=== PATIENT | male | born 1960 | race Two or more races ===

== ENCOUNTER 2019-10-02 05:33 | Inpatient (IN) | payer OTHER ==
[~2019-10-02] VITALS: Ht 172.7 cm; Wt 126.0 kg
[2019-10-02] MEDS ORDERED: SODIUM CHLORIDE 0.9% 100 ML ONE ×2 (06:41→11:23)
[2019-10-02] MEDS ORDERED: IOVERSOL 350 MG/ML 100 ML VIAL ONE ×2 (06:41→11:23)
[2019-10-02] MEDS ORDERED: ALBUTEROL SULFATE HFA 90 MCG/PUFF 8 GM INHALER IH ONE (06:45)
[2019-10-02] MEDS ORDERED: ACETAMINOPHEN 325 MG TABLET PO PRN (07:00)
[2019-10-02] MEDS ORDERED: 0.9% SODIUM CHLORIDE 10 ML SYRINGE IVP PRN ×2 (07:00→08:00)
[2019-10-02] MEDS ORDERED: ONDANSETRON HCL 4 MG/2 ML VIAL IVP PRN ×2 (07:00→08:00)
[2019-10-02] MEDS ORDERED: DEXTROSE 50%-WATER 25 GM/50 ML SYRINGE IVP PRN (07:45)
[2019-10-02] MEDS ORDERED: ALBUTEROL SULFATE/IPRATROPIUM 100-20 MCG/SPRAY 4 GM INHALER IH PRN ×2 (07:45→13:15)
[2019-10-02] MEDS ORDERED: DOCUSATE SODIUM 100 MG CAPSULE PO PRN (08:00)
[2019-10-02] MEDS ORDERED: BISACODYL 10 MG RECTAL RECTAL SUPPOSITORY PR PRN (08:00)
[2019-10-02] MEDS ORDERED: MAGNESIUM HYDROXIDE SUSPENSION 30 ML UDCUP PO PRN (08:00)
[2019-10-02 08:41] LABS: GLUCOSE,POINT OF CARE 107 MG/DL (70-110)
[2019-10-02 08:55] LABS: APPEARANCE,URINE CLEAR (CLEAR); BILIRUBIN,URINE NEGATIVE (NEGATIVE); GLUCOSE, URINE (UA) NEGATIVE (NEGATIVE); KETONES,URINE >=80 mg/dL (NEGATIVE); LEUKOCYTE ESTERASE ,URINE NEGATIVE (NEGATIVE); NITRATE,URINE NEGATIVE (NEGATIVE); OCCULT BLOOD,URINE TRACE (NEGATIVE); PROTEIN,URINE SEE CONFIRM (NEGATIVE)
[2019-10-02] MEDS: ALBUTEROL SULFATE/IPRATROPIUM 100-20 MCG/SPRAY 4 GM INHALER IH SCH ×2 (09:31→18:35)
[2019-10-02] MEDS: PANTOPRAZOLE SODIUM 40 MG DR TABLET PO SCH (09:32)
[2019-10-02] MEDS: HEPARIN SODIUM,PORCINE 5,000 UNITS/ML VIAL SQ SCH ×2 (09:33→20:48)
[2019-10-02 09:51] LABS: BACTERIA,URINE None Seen /HPF (None Seen); RBC,URINE 0-2 /HPF (0-2); SULFOSALICYLIC ACID,URINE 3+ (Negative); WBC,URINE 0-2 /HPF (0-5)
[2019-10-02 09:52] LABS: HYALINE CASTS, URINE 0-2 /LPF (None Seen)
[2019-10-02 09:55] LABS: ABG A-A DIFF O2 583.2 mmHg (10-20.0); ABG BASE EXCESS 1.4 mmol/L (-2.0-3.0); ABG CARBOXYHEMOGLOBIN 0.2 % (0.0-1.5); ABG HCO3 25.7 mmol/L (22.0-26.0); ABG METHEMOGLOBIN 0.4 % (0.0-1.5); ABG OXYGEN CONTENT 20.2 mL/dL (15.0-23.0); ABG OXYGEN SATURATION 96.7 % (95.0-98.0); ABG OXYHEMOGLOBIN 96.1 % (94.0-100.0); ABG PCO2 40 mmHg (35-45); ABG PH 7.426 (7.35-7.450); ABG TOTAL HEMOGLOBIN 14.9 G/dL (12.0-18.0); PO2, ARTERIAL BG 89.2 mmHg (79.0-87.0); SOURCE, BLOOD GAS ARTERIAL
[2019-10-02 09:56] LABS: O2 DEVICE,BLOOD GAS NRB (ROOM AIR); SITE, BLOOD GAS LFT RADIAL
[2019-10-02 10:40] LABS: BASOPHILS % (AUTO) 0.1 % (0.0-2.0); EOSINOPHILS % (AUTO) 0 % (1.0-6.0); HEMATOCRIT 42.7 % (41-53); HEMOGLOBIN 14.2 g/dL (13.5-17.5); LYMPHOCYTES # (AUTO) 0.4 K/uL (1.0-4.8); LYMPHOCYTES % (AUTO) 3.1 % (22.0-44.0); MEAN CORPUSCULAR HEMOGLOBIN 29.2 pg (26.0-34.0); MEAN CORPUSCULAR HGB CONC 33.2 G/dL (31.0-37.0); MEAN CORPUSCULAR VOLUME 88 fL (80-100); MONOCYTES # (AUTO) 0.2 K/uL (0.1-1.0); MONOCYTES % (AUTO) 1.8 % (2.0-9.0); NEUTROPHILS # (AUTO) 12.9 K/uL (1.8-7.7); PLATELET COUNT (AUTO) 187 K/uL (150-450); RED BLOOD CELL COUNT(AUTO) 4.85 MIL/uL (4.50-5.90); RED CELL DISTRIBUTION WIDTH 13.8 % (11.5-14.5)
[2019-10-02 10:44] LABS: ANION GAP 11 mmol/L (8-16); CALCIUM, TOTAL 8.3 mg/dL (8.8-10.5); CARBON DIOXIDE 27 mmol/L (22-29); CHLORIDE 100 mmol/L (98-107); CREATININE 0.82 mg/dL (0.60-1.30); GLOMERULAR FILTR. RATE CALC > 60 mL/min (>60); GLUCOSE,RANDOM 106 mg/dL (70-110); POTASSIUM 4.4 mmol/L (3.5-5.1); SODIUM SERUM 138 mmol/L (136-145); UREA NITROGEN, BLOOD 21 mg/dL (7-18)
[2019-10-02 10:51] LABS: ALANINE AMINOTRANSFERASE 40 U/L (12-78); ALBUMIN 2.4 g/dL (3.4-5.0); ALKALINE PHOSPHATASE 69 U/L (46-116); ASPARTATE AMINOTRANSFERASE 46 U/L (15-37); BILIRUBIN,TOTAL 0.6 mg/dL (0.1-1.0); TOTAL PROTEIN, SERUM 6.7 g/dL (6.4-8.2)
[2019-10-02 11:37] LABS: C-REACTIVE PROTEIN QUANT 24.74 mg/dL (0.00-0.30); FERRITIN 1498 ng/mL (26-388)
[2019-10-02 11:58] LABS: ERYTHROCYTE SEDIMENTATION RATE 50 MM/HR (0-15)
[2019-10-02 13:23] VITALS: BP 134/75
[2019-10-02 16:59] VITALS: BP 122/66
[2019-10-02] MEDS ORDERED: AZITHROMYCIN 500 MG/NS 250 ML IV SCH (20:00)
[2019-10-02] MEDS ORDERED: SODIUM CHLORIDE 0.9% 250 ML IV ONE (20:28)
[2019-10-02] MEDS: HYDROXYCHLOROQUINE SULFATE 200 MG TABLET PO SCH (20:48)
[2019-10-02 21:03] VITALS: BP 122/63
[2019-10-02] MEDS: ACETAMINOPHEN 325 MG TABLET PO PRN (21:04)
[2019-10-03] MEDS: ZINC SULFATE 220 MG CAPSULE PO SCH ×3 (00:33→20:56)
[2019-10-03] MEDS: ALBUTEROL SULFATE/IPRATROPIUM 100-20 MCG/SPRAY 4 GM INHALER IH SCH ×4 (00:33→18:00)
[2019-10-03 04:00] VITALS: BP 92/53
[2019-10-03] MEDS: LEVOFLOXACIN 750 MG/D5% WATER 150 ML IV SCH (04:25)
[2019-10-03] MEDS: ACETAMINOPHEN 325 MG TABLET PO PRN ×2 (05:21→15:58)
[2019-10-03 06:57] LABS: EOSINOPHILS % (AUTO) 0 % (1.0-6.0); LYMPHOCYTES # (AUTO) 0.4 K/uL (1.0-4.8); LYMPHOCYTES % (AUTO) 4.6 % (22.0-44.0); MEAN CORPUSCULAR HEMOGLOBIN 29.5 pg (26.0-34.0); MEAN CORPUSCULAR HGB CONC 34.2 G/dL (31.0-37.0); MEAN CORPUSCULAR VOLUME 86 fL (80-100); MONOCYTES # (AUTO) 0.3 K/uL (0.1-1.0); MONOCYTES % (AUTO) 3.8 % (2.0-9.0); NEUTROPHILS # (AUTO) 7.3 K/uL (1.8-7.7); PLATELET COUNT (AUTO) 215 K/uL (150-450); RED BLOOD CELL COUNT(AUTO) 4.41 MIL/uL (4.50-5.90); RED CELL DISTRIBUTION WIDTH 13.5 % (11.5-14.5)
[2019-10-03 07:04] LABS: NEUTROPHILS % (AUTO) 91.6 % (40.0-70.0)
[2019-10-03] MEDS: HYDROXYCHLOROQUINE SULFATE 200 MG TABLET PO SCH ×2 (08:24→20:56)
[2019-10-03] MEDS: HEPARIN SODIUM,PORCINE 5,000 UNITS/ML VIAL SQ SCH ×2 (08:24→20:56)
[2019-10-03] MEDS: PANTOPRAZOLE SODIUM 40 MG DR TABLET PO SCH (08:24)
[2019-10-03 08:35] VITALS: BP 111/66
[2019-10-03 08:58] LABS: ALANINE AMINOTRANSFERASE 60 U/L (12-78); ALBUMIN 2.1 g/dL (3.4-5.0); ALKALINE PHOSPHATASE 62 U/L (46-116); ANION GAP 8 mmol/L (8-16); ASPARTATE AMINOTRANSFERASE 82 U/L (15-37); BILIRUBIN,TOTAL 0.4 mg/dL (0.1-1.0); C-REACTIVE PROTEIN QUANT 19.47 mg/dL (0.00-0.30); CALCIUM, TOTAL 7.9 mg/dL (8.8-10.5); CARBON DIOXIDE 26 mmol/L (22-29); CHLORIDE 100 mmol/L (98-107); CREATININE 0.96 mg/dL (0.60-1.30); FERRITIN 1632 ng/mL (26-388); GLOMERULAR FILTR. RATE CALC > 60 mL/min (>60); GLUCOSE,RANDOM 119 mg/dL (70-110); LACTATE DEHYDROGENASE 402 U/L (85-227); SODIUM SERUM 134 mmol/L (136-145); TOTAL PROTEIN, SERUM 6.3 g/dL (6.4-8.2); UREA NITROGEN, BLOOD 26 mg/dL (7-18)
[2019-10-03 09:28] LABS: GLUCOMETER DEV NAME(LOC) 5N.1; GLUCOSE,POINT OF CARE 120 MG/DL (70-110)
[2019-10-03 09:28] LABS: GLUCOMETER DEV NAME(LOC) 5N.1; GLUCOSE,POINT OF CARE 137 MG/DL (70-110)
[2019-10-03 15:47] VITALS: BP 109/61
[2019-10-03 20:26] VITALS: BP 115/66
[2019-10-03] MEDS ORDERED: SODIUM CHLORIDE 0.9% 500 ML IV ONE (23:44)
[2019-10-04] VITALS (9 sets, daily range): BP systolic 107–139; BP diastolic 60–82
[2019-10-04] MEDS: ACETAMINOPHEN 325 MG TABLET PO PRN ×4 (00:12→22:19)
[2019-10-04] MEDS: ALBUTEROL SULFATE/IPRATROPIUM 100-20 MCG/SPRAY 4 GM INHALER IH SCH ×4 (01:56→20:06)
[2019-10-04 02:40] LABS: GLUCOMETER DEV NAME(LOC) 5S.2A; GLUCOSE,POINT OF CARE 95 MG/DL (70-110)
[2019-10-04 02:40] LABS: GLUCOMETER DEV NAME(LOC) 5S.2A; GLUCOSE,POINT OF CARE 98 MG/DL (70-110)
[2019-10-04 02:40] LABS: GLUCOMETER DEV NAME(LOC) 5S.2A; GLUCOSE,POINT OF CARE 99 MG/DL (70-110)
[2019-10-04 02:40] LABS: GLUCOMETER DEV NAME(LOC) 5S.2A; GLUCOSE,POINT OF CARE 100 MG/DL (70-110)
[2019-10-04 02:40] LABS: GLUCOMETER DEV NAME(LOC) 5S.2A; GLUCOSE,POINT OF CARE 101 MG/DL (70-110)
[2019-10-04] MEDS: LEVOFLOXACIN 750 MG/D5% WATER 150 ML IV SCH (03:44)
[2019-10-04 06:56] LABS: EOSINOPHILS % (AUTO) 0.3 % (1.0-6.0); HEMATOCRIT 39.9 % (41-53); HEMOGLOBIN 13.2 g/dL (13.5-17.5); LYMPHOCYTES # (AUTO) 0.4 K/uL (1.0-4.8); MEAN CORPUSCULAR HEMOGLOBIN 28.7 pg (26.0-34.0); MEAN CORPUSCULAR VOLUME 87 fL (80-100); MONOCYTES # (AUTO) 0.3 K/uL (0.1-1.0); MONOCYTES % (AUTO) 4.2 % (2.0-9.0); NEUTROPHILS # (AUTO) 6.7 K/uL (1.8-7.7); PLATELET COUNT (AUTO) 271 K/uL (150-450); RED BLOOD CELL COUNT(AUTO) 4.59 MIL/uL (4.50-5.90); RED CELL DISTRIBUTION WIDTH 13.5 % (11.5-14.5)
[2019-10-04 07:17] LABS: NEUTROPHILS % (AUTO) 90.5 % (40.0-70.0)
[2019-10-04 07:49] LABS: GLUCOMETER DEV NAME(LOC) 5S.2A; GLUCOSE,POINT OF CARE 100 MG/DL (70-110)
[2019-10-04 08:20] LABS: ANION GAP 11 mmol/L (8-16); C-REACTIVE PROTEIN QUANT 13.15 mg/dL (0.00-0.30); CALCIUM, TOTAL 7.9 mg/dL (8.8-10.5); CARBON DIOXIDE 27 mmol/L (22-29); CHLORIDE 100 mmol/L (98-107); FERRITIN 1306 ng/mL (26-388); GLOMERULAR FILTR. RATE CALC > 60 mL/min (>60); GLUCOSE,RANDOM 93 mg/dL (70-110); LACTATE DEHYDROGENASE 393 U/L (85-227); POTASSIUM 4.5 mmol/L (3.5-5.1); SODIUM SERUM 138 mmol/L (136-145); UREA NITROGEN, BLOOD 18 mg/dL (7-18)
[2019-10-04] MEDS: HEPARIN SODIUM,PORCINE 5,000 UNITS/ML VIAL SQ SCH ×2 (09:41→22:19)
[2019-10-04] MEDS: HYDROXYCHLOROQUINE SULFATE 200 MG TABLET PO SCH ×2 (09:42→22:19)
[2019-10-04] MEDS: PANTOPRAZOLE SODIUM 40 MG DR TABLET PO SCH (09:42)
[2019-10-04] MEDS: ZINC SULFATE 220 MG CAPSULE PO SCH ×2 (09:42→22:19)
[2019-10-04 20:41] LABS: GLUCOMETER DEV NAME(LOC) 5S.1; GLUCOSE,POINT OF CARE 91 MG/DL (70-110)
[2019-10-04 20:54] LABS: GLUCOMETER DEV NAME(LOC) 5N.1; GLUCOSE,POINT OF CARE 106 MG/DL (70-110)
[2019-10-05 00:47] VITALS: BP 116/72
[2019-10-05] MEDS: ALBUTEROL SULFATE/IPRATROPIUM 100-20 MCG/SPRAY 4 GM INHALER IH SCH ×5 (01:13→23:55)
[2019-10-05] MEDS: LEVOFLOXACIN 750 MG/D5% WATER 150 ML IV SCH (01:15)
[2019-10-05 04:34] VITALS: BP 109/51
[2019-10-05 07:11] LABS: BASOPHILS % (AUTO) 0.1 % (0.0-2.0); EOSINOPHILS % (AUTO) 0.5 % (1.0-6.0); HEMATOCRIT 37.2 % (41-53); HEMOGLOBIN 12.5 g/dL (13.5-17.5); LYMPHOCYTES # (AUTO) 0.2 K/uL (1.0-4.8); LYMPHOCYTES % (AUTO) 3.8 % (22.0-44.0); MEAN CORPUSCULAR HEMOGLOBIN 29.1 pg (26.0-34.0); MEAN CORPUSCULAR HGB CONC 33.6 G/dL (31.0-37.0); MEAN CORPUSCULAR VOLUME 87 fL (80-100); MONOCYTES # (AUTO) 0.3 K/uL (0.1-1.0); MONOCYTES % (AUTO) 4.2 % (2.0-9.0); NEUTROPHILS # (AUTO) 5.9 K/uL (1.8-7.7); PLATELET COUNT (AUTO) 296 K/uL (150-450); RED BLOOD CELL COUNT(AUTO) 4.28 MIL/uL (4.50-5.90); RED CELL DISTRIBUTION WIDTH 13.3 % (11.5-14.5)
[2019-10-05 07:29] LABS: NEUTROPHILS % (AUTO) 91.4 % (40.0-70.0)
[2019-10-05 07:44] VITALS: BP 106/60
[2019-10-05] MEDS: ZINC SULFATE 220 MG CAPSULE PO SCH ×2 (08:15→20:33)
[2019-10-05] MEDS: HYDROXYCHLOROQUINE SULFATE 200 MG TABLET PO SCH (08:15)
[2019-10-05] MEDS: HEPARIN SODIUM,PORCINE 5,000 UNITS/ML VIAL SQ SCH ×2 (08:15→20:33)
[2019-10-05] MEDS: PANTOPRAZOLE SODIUM 40 MG DR TABLET PO SCH (08:15)
[2019-10-05] MEDS: ACETAMINOPHEN 325 MG TABLET PO PRN ×2 (08:19→20:33)
[2019-10-05 08:21] LABS: ALANINE AMINOTRANSFERASE 76 U/L (12-78); ALKALINE PHOSPHATASE 82 U/L (46-116); ANION GAP 8 mmol/L (8-16); ASPARTATE AMINOTRANSFERASE 70 U/L (15-37); BILIRUBIN,TOTAL 0.4 mg/dL (0.1-1.0); C-REACTIVE PROTEIN QUANT 18.48 mg/dL (0.00-0.30); CARBON DIOXIDE 26 mmol/L (22-29); CHLORIDE 98 mmol/L (98-107); CREATININE 0.92 mg/dL (0.60-1.30); FERRITIN 1351 ng/mL (26-388); GLOMERULAR FILTR. RATE CALC > 60 mL/min (>60); GLUCOSE,RANDOM 93 mg/dL (70-110); LACTATE DEHYDROGENASE 498 U/L (85-227); POTASSIUM 4.1 mmol/L (3.5-5.1); SODIUM SERUM 132 mmol/L (136-145); TOTAL PROTEIN, SERUM 6.5 g/dL (6.4-8.2); UREA NITROGEN, BLOOD 13 mg/dL (7-18)
[2019-10-05 11:50] VITALS: BP 103/58
[2019-10-05 14:14] LABS: LEGIONELLA PNEUMO AG URINE Negative (Negative); ORGANISM ID Not indicated.; S PNEUMO SOURCE Urine; STREP PNEUMONIAE AG URINE Negative (Negative); STREP.PNEUMO BODY FLUID CULT. Not indicated.
[2019-10-05 17:16] VITALS: BP 131/72
[2019-10-05 20:48] VITALS: BP 123/66
[2019-10-06] MEDS: LEVOFLOXACIN 750 MG/D5% WATER 150 ML IV SCH ×2 (01:25→23:48)
[2019-10-06] MEDS: ACETAMINOPHEN 325 MG TABLET PO PRN ×3 (01:30→20:08)
[2019-10-06 01:31] VITALS: BP 118/68
[2019-10-06 04:13] VITALS: BP 121/74
[2019-10-06 06:01] LABS: BASOPHILS % (AUTO) 0.5 % (0.0-2.0); HEMATOCRIT 37.1 % (41-53); HEMOGLOBIN 12.9 g/dL (13.5-17.5); LYMPHOCYTES # (AUTO) 0.3 K/uL (1.0-4.8); LYMPHOCYTES % (AUTO) 4.4 % (22.0-44.0); MEAN CORPUSCULAR HGB CONC 34.8 G/dL (31.0-37.0); MEAN CORPUSCULAR VOLUME 86 fL (80-100); MONOCYTES # (AUTO) 0.3 K/uL (0.1-1.0); MONOCYTES % (AUTO) 4.6 % (2.0-9.0); NEUTROPHILS # (AUTO) 6.5 K/uL (1.8-7.7); PLATELET COUNT (AUTO) 310 K/uL (150-450); RED BLOOD CELL COUNT(AUTO) 4.31 MIL/uL (4.50-5.90); RED CELL DISTRIBUTION WIDTH 13.4 % (11.5-14.5)
[2019-10-06 06:32] LABS: GLUCOMETER DEV NAME(LOC) 5S.2A; GLUCOSE,POINT OF CARE 87 MG/DL (70-110)
[2019-10-06 06:32] LABS: GLUCOMETER DEV NAME(LOC) 5N.1; GLUCOSE,POINT OF CARE 143 MG/DL (70-110)
[2019-10-06 06:32] LABS: GLUCOMETER DEV NAME(LOC) 5N.1; GLUCOSE,POINT OF CARE 106 MG/DL (70-110)
[2019-10-06 06:32] LABS: GLUCOMETER DEV NAME(LOC) 5N.1; GLUCOSE,POINT OF CARE 98 MG/DL (70-110)
[2019-10-06 06:57] LABS: ALANINE AMINOTRANSFERASE 95 U/L (12-78); ALBUMIN 1.9 g/dL (3.4-5.0); ALKALINE PHOSPHATASE 89 U/L (46-116); ANION GAP 9 mmol/L (8-16); ASPARTATE AMINOTRANSFERASE 84 U/L (15-37); BILIRUBIN,TOTAL 0.5 mg/dL (0.1-1.0); C-REACTIVE PROTEIN QUANT 21.34 mg/dL (0.00-0.30); CALCIUM, TOTAL 8.1 mg/dL (8.8-10.5); CARBON DIOXIDE 27 mmol/L (22-29); CHLORIDE 100 mmol/L (98-107); CREATININE 0.99 mg/dL (0.60-1.30); FERRITIN 1772 ng/mL (26-388); GLOMERULAR FILTR. RATE CALC > 60 mL/min (>60); GLUCOSE,RANDOM 103 mg/dL (70-110); LACTATE DEHYDROGENASE 313 U/L (85-227); POTASSIUM 4.2 mmol/L (3.5-5.1); SODIUM SERUM 136 mmol/L (136-145); TOTAL PROTEIN, SERUM 6.7 g/dL (6.4-8.2); UREA NITROGEN, BLOOD 12 mg/dL (7-18)
[2019-10-06 07:49] VITALS: BP 111/72
[2019-10-06 07:53] LABS: NEUTROPHILS % (AUTO) 89.5 % (40.0-70.0)
[2019-10-06] MEDS: HEPARIN SODIUM,PORCINE 5,000 UNITS/ML VIAL SQ SCH ×2 (08:25→20:09)
[2019-10-06] MEDS: ZINC SULFATE 220 MG CAPSULE PO SCH ×2 (08:25→20:09)
[2019-10-06] MEDS: PANTOPRAZOLE SODIUM 40 MG DR TABLET PO SCH (08:25)
[2019-10-06] MEDS: ALBUTEROL SULFATE/IPRATROPIUM 100-20 MCG/SPRAY 4 GM INHALER IH SCH ×4 (08:26→23:47)
[2019-10-06 16:33] VITALS: BP 107/56
[2019-10-06 19:50] VITALS: BP 119/72
[2019-10-06 23:39] VITALS: BP 117/62
[2019-10-07] MEDS: ALBUTEROL SULFATE/IPRATROPIUM 100-20 MCG/SPRAY 4 GM INHALER IH SCH ×3 (05:12→17:59)
[2019-10-07 05:19] VITALS: BP 109/51
[2019-10-07 07:22] VITALS: BP 117/69
[2019-10-07 07:44] LABS: BASOPHILS % (AUTO) 0.6 % (0.0-2.0); EOSINOPHILS % (AUTO) 1.4 % (1.0-6.0); HEMATOCRIT 37.5 % (41-53); HEMOGLOBIN 12.4 g/dL (13.5-17.5); LYMPHOCYTES # (AUTO) 0.5 K/uL (1.0-4.8); LYMPHOCYTES % (AUTO) 7.1 % (22.0-44.0); MEAN CORPUSCULAR HEMOGLOBIN 28.8 pg (26.0-34.0); MEAN CORPUSCULAR VOLUME 87 fL (80-100); MONOCYTES # (AUTO) 0.3 K/uL (0.1-1.0); MONOCYTES % (AUTO) 4.5 % (2.0-9.0); NEUTROPHILS # (AUTO) 5.9 K/uL (1.8-7.7); PLATELET COUNT (AUTO) 364 K/uL (150-450); RED CELL DISTRIBUTION WIDTH 13.5 % (11.5-14.5)
[2019-10-07 07:50] LABS: NEUTROPHILS % (AUTO) 86.4 % (40.0-70.0)
[2019-10-07] MEDS: HEPARIN SODIUM,PORCINE 5,000 UNITS/ML VIAL SQ SCH ×2 (08:28→20:49)
[2019-10-07] MEDS: PANTOPRAZOLE SODIUM 40 MG DR TABLET PO SCH (08:29)
[2019-10-07] MEDS: ZINC SULFATE 220 MG CAPSULE PO SCH ×2 (08:29→20:49)
[2019-10-07 08:51] LABS: ALANINE AMINOTRANSFERASE 95 U/L (12-78); ALBUMIN 1.8 g/dL (3.4-5.0); ALKALINE PHOSPHATASE 104 U/L (46-116); ANION GAP 10 mmol/L (8-16); ASPARTATE AMINOTRANSFERASE 79 U/L (15-37); BILIRUBIN,TOTAL 0.4 mg/dL (0.1-1.0); C-REACTIVE PROTEIN QUANT 19.79 mg/dL (0.00-0.30); CARBON DIOXIDE 26 mmol/L (22-29); CHLORIDE 98 mmol/L (98-107); CREATININE 0.96 mg/dL (0.60-1.30); FERRITIN 1660 ng/mL (26-388); GLOMERULAR FILTR. RATE CALC > 60 mL/min (>60); GLUCOSE,RANDOM 91 mg/dL (70-110); LACTATE DEHYDROGENASE 355 U/L (85-227); POTASSIUM 4.1 mmol/L (3.5-5.1); SODIUM SERUM 134 mmol/L (136-145); TOTAL PROTEIN, SERUM 6.7 g/dL (6.4-8.2); UREA NITROGEN, BLOOD 12 mg/dL (7-18)
[2019-10-07 11:03] VITALS: BP 119/73
[2019-10-07] MEDS: ACETAMINOPHEN 325 MG TABLET PO PRN (12:09)
[2019-10-07 15:23] VITALS: BP 117/75
[2019-10-07 16:31] LABS: GLUCOMETER DEV NAME(LOC) 5S.2A; GLUCOSE,POINT OF CARE 102 MG/DL (70-110)
[2019-10-07 17:29] LABS: GLUCOMETER DEV NAME(LOC) 5N.3; GLUCOSE,POINT OF CARE 94 MG/DL (70-110)
[2019-10-07 20:10] VITALS: BP 106/41
[2019-10-08] MEDS: ALBUTEROL SULFATE/IPRATROPIUM 100-20 MCG/SPRAY 4 GM INHALER IH SCH ×4 (01:16→18:00)
[2019-10-08] MEDS: LEVOFLOXACIN 750 MG/D5% WATER 150 ML IV SCH (02:01)
[2019-10-08 05:43] VITALS: BP 113/70
[2019-10-08 06:42] LABS: GLUCOMETER DEV NAME(LOC) 5N.3; GLUCOSE,POINT OF CARE 100 MG/DL (70-110)
[2019-10-08 06:42] LABS: GLUCOMETER DEV NAME(LOC) 5N.3; GLUCOSE,POINT OF CARE 134 MG/DL (70-110)
[2019-10-08 07:40] VITALS: BP 108/68
[2019-10-08 07:48] LABS: BASOPHILS % (AUTO) 0.7 % (0.0-2.0); HEMATOCRIT 35.6 % (41-53); LYMPHOCYTES # (AUTO) 0.4 K/uL (1.0-4.8); LYMPHOCYTES % (AUTO) 6.6 % (22.0-44.0); MEAN CORPUSCULAR HEMOGLOBIN 29.3 pg (26.0-34.0); MEAN CORPUSCULAR HGB CONC 33.6 G/dL (31.0-37.0); MEAN CORPUSCULAR VOLUME 87 fL (80-100); MONOCYTES # (AUTO) 0.4 K/uL (0.1-1.0); MONOCYTES % (AUTO) 6.5 % (2.0-9.0); NEUTROPHILS # (AUTO) 5.5 K/uL (1.8-7.7); PLATELET COUNT (AUTO) 383 K/uL (150-450); RED BLOOD CELL COUNT(AUTO) 4.08 MIL/uL (4.50-5.90); RED CELL DISTRIBUTION WIDTH 13.7 % (11.5-14.5)
[2019-10-08 08:16] LABS: NEUTROPHILS % (AUTO) 85.2 % (40.0-70.0)
[2019-10-08] MEDS: ZINC SULFATE 220 MG CAPSULE PO SCH (08:37)
[2019-10-08] MEDS: HEPARIN SODIUM,PORCINE 5,000 UNITS/ML VIAL SQ SCH (08:38)
[2019-10-08] MEDS: PANTOPRAZOLE SODIUM 40 MG DR TABLET PO SCH (08:38)
[2019-10-08 09:09] LABS: ALANINE AMINOTRANSFERASE 112 U/L (12-78); ALBUMIN 1.8 g/dL (3.4-5.0); ALKALINE PHOSPHATASE 94 U/L (46-116); ANION GAP 10 mmol/L (8-16); ASPARTATE AMINOTRANSFERASE 86 U/L (15-37); BILIRUBIN,TOTAL 0.5 mg/dL (0.1-1.0); C-REACTIVE PROTEIN QUANT 17.33 mg/dL (0.00-0.30); CALCIUM, TOTAL 8.2 mg/dL (8.8-10.5); CARBON DIOXIDE 26 mmol/L (22-29); CHLORIDE 99 mmol/L (98-107); CREATININE 0.92 mg/dL (0.60-1.30); FERRITIN 1517 ng/mL (26-388); GLOMERULAR FILTR. RATE CALC > 60 mL/min (>60); GLUCOSE,RANDOM 89 mg/dL (70-110); POTASSIUM 4.3 mmol/L (3.5-5.1); SODIUM SERUM 135 mmol/L (136-145); TOTAL PROTEIN, SERUM 6.6 g/dL (6.4-8.2); UREA NITROGEN, BLOOD 13 mg/dL (7-18)
[2019-10-08 11:35] VITALS: BP 112/68
[2019-10-08 15:16] VITALS: BP 126/87
[2019-10-08 19:28] VITALS: BP 133/74
[2019-10-09 00:08] LABS: GLUCOMETER DEV NAME(LOC) 5S.2A; GLUCOSE,POINT OF CARE 94 MG/DL (70-110)
[2019-10-09] MEDS: ZINC SULFATE 220 MG CAPSULE PO SCH ×3 (00:47→20:53)
[2019-10-09] MEDS: ALBUTEROL SULFATE/IPRATROPIUM 100-20 MCG/SPRAY 4 GM INHALER IH SCH ×4 (00:48→18:08)
[2019-10-09] MEDS: HEPARIN SODIUM,PORCINE 5,000 UNITS/ML VIAL SQ SCH ×3 (00:49→20:53)
[2019-10-09 01:21] LABS: GLUCOMETER DEV NAME(LOC) 5N.3; GLUCOSE,POINT OF CARE 82 MG/DL (70-110)
[2019-10-09] MEDS: LEVOFLOXACIN 750 MG/D5% WATER 150 ML IV SCH (01:26)
[2019-10-09 05:16] VITALS: BP 114/65
[2019-10-09 06:33] LABS: GLUCOMETER DEV NAME(LOC) 5S.2A; GLUCOSE,POINT OF CARE 89 MG/DL (70-110)
[2019-10-09 07:22] VITALS: BP 116/69
[2019-10-09 07:58] LABS: GLUCOMETER DEV NAME(LOC) 5N.3; GLUCOSE,POINT OF CARE 109 MG/DL (70-110)
[2019-10-09 08:02] LABS: BASOPHILS % (AUTO) 0.3 % (0.0-2.0); EOSINOPHILS % (AUTO) 0.5 % (1.0-6.0); HEMATOCRIT 37.9 % (41-53); HEMOGLOBIN 12.5 g/dL (13.5-17.5); LYMPHOCYTES # (AUTO) 0.5 K/uL (1.0-4.8); LYMPHOCYTES % (AUTO) 6.1 % (22.0-44.0); MEAN CORPUSCULAR HEMOGLOBIN 28.6 pg (26.0-34.0); MEAN CORPUSCULAR HGB CONC 32.9 G/dL (31.0-37.0); MEAN CORPUSCULAR VOLUME 87 fL (80-100); MONOCYTES # (AUTO) 0.6 K/uL (0.1-1.0); MONOCYTES % (AUTO) 7.4 % (2.0-9.0); NEUTROPHILS # (AUTO) 7.4 K/uL (1.8-7.7); PLATELET COUNT (AUTO) 433 K/uL (150-450); RED BLOOD CELL COUNT(AUTO) 4.35 MIL/uL (4.50-5.90); RED CELL DISTRIBUTION WIDTH 13.6 % (11.5-14.5)
[2019-10-09 08:35] LABS: NEUTROPHILS % (AUTO) 85.7 % (40.0-70.0)
[2019-10-09 09:11] LABS: ALANINE AMINOTRANSFERASE 172 U/L (12-78); ALBUMIN 1.9 g/dL (3.4-5.0); ALKALINE PHOSPHATASE 126 U/L (46-116); ANION GAP 9 mmol/L (8-16); ASPARTATE AMINOTRANSFERASE 165 U/L (15-37); BILIRUBIN,TOTAL 0.6 mg/dL (0.1-1.0); C-REACTIVE PROTEIN QUANT 18.01 mg/dL (0.00-0.30); CARBON DIOXIDE 27 mmol/L (22-29); CHLORIDE 99 mmol/L (98-107); FERRITIN 1709 ng/mL (26-388); GLOMERULAR FILTR. RATE CALC > 60 mL/min (>60); GLUCOSE,RANDOM 94 mg/dL (70-110); POTASSIUM 5.1 mmol/L (3.5-5.1); SODIUM SERUM 135 mmol/L (136-145); TOTAL PROTEIN, SERUM 6.3 g/dL (6.4-8.2); UREA NITROGEN, BLOOD 14 mg/dL (7-18)
[2019-10-09] MEDS: PANTOPRAZOLE SODIUM 40 MG DR TABLET PO SCH (10:33)
[2019-10-09] MEDS: ACETAMINOPHEN 325 MG TABLET PO PRN (10:33)
[2019-10-09 10:55] VITALS: BP 120/70
[2019-10-09 15:42] VITALS: BP 111/65
[2019-10-09 17:29] LABS: GLUCOMETER DEV NAME(LOC) 5S.2A; GLUCOSE,POINT OF CARE 126 MG/DL (70-110)
[2019-10-09 20:09] VITALS: BP 96/61
[2019-10-09 22:14] LABS: GLUCOMETER DEV NAME(LOC) 5S.2A; GLUCOSE,POINT OF CARE 134 MG/DL (70-110)
[2019-10-10 00:35] VITALS: BP 113/64
[2019-10-10 04:09] VITALS: BP 110/66
[2019-10-10 06:17] LABS: GLUCOMETER DEV NAME(LOC) 5N.3; GLUCOSE,POINT OF CARE 101 MG/DL (70-110)
[2019-10-10 06:42] LABS: ALANINE AMINOTRANSFERASE 147 U/L (12-78); ALBUMIN 1.7 g/dL (3.4-5.0); ALKALINE PHOSPHATASE 116 U/L (46-116); ANION GAP 7 mmol/L (8-16); ASPARTATE AMINOTRANSFERASE 88 U/L (15-37); BILIRUBIN,TOTAL 0.6 mg/dL (0.1-1.0); CALCIUM, TOTAL 8.4 mg/dL (8.8-10.5); CARBON DIOXIDE 28 mmol/L (22-29); CHLORIDE 101 mmol/L (98-107); GLOMERULAR FILTR. RATE CALC > 60 mL/min (>60); GLUCOSE,RANDOM 93 mg/dL (70-110); POTASSIUM 4.4 mmol/L (3.5-5.1); SODIUM SERUM 136 mmol/L (136-145); TOTAL PROTEIN, SERUM 6.9 g/dL (6.4-8.2); UREA NITROGEN, BLOOD 13 mg/dL (7-18)
[2019-10-10 07:37] VITALS: BP 115/68
[2019-10-10] MEDS: ZINC SULFATE 220 MG CAPSULE PO SCH ×2 (08:48→21:11)
[2019-10-10] MEDS: ALBUTEROL SULFATE/IPRATROPIUM 100-20 MCG/SPRAY 4 GM INHALER IH SCH ×4 (08:49→17:35)
[2019-10-10] MEDS: PANTOPRAZOLE SODIUM 40 MG DR TABLET PO SCH (08:49)
[2019-10-10] MEDS: HEPARIN SODIUM,PORCINE 5,000 UNITS/ML VIAL SQ SCH (08:49)
[2019-10-10 09:47] LABS: C-REACTIVE PROTEIN QUANT 16.45 mg/dL (0.00-0.30); FERRITIN 1666 ng/mL (26-388)
[2019-10-10 11:00] VITALS: BP 101/61
[2019-10-10 15:50] VITALS: BP 115/64
[2019-10-10] MEDS: ACETAMINOPHEN 325 MG TABLET PO PRN (17:43)
[2019-10-10 20:01] VITALS: BP 108/65
[2019-10-10 20:40] LABS: GLUCOMETER DEV NAME(LOC) 5N.3; GLUCOSE,POINT OF CARE 114 MG/DL (70-110)
[2019-10-10] MEDS: ENOXAPARIN SODIUM 60 MG/0.6 ML PF SYRINGE SQ SCH (21:11)
[2019-10-11] VITALS: BP 98/60
[2019-10-11] MEDS: ALBUTEROL SULFATE/IPRATROPIUM 100-20 MCG/SPRAY 4 GM INHALER IH SCH ×4 (01:30→18:00)
[2019-10-11 04:55] VITALS: BP 122/74
[2019-10-11] MEDS ORDERED: 0.9% SODIUM CHLORIDE 5 ML NEB SOLUTION NEB ONE ×2 (08:41→17:12)
[2019-10-11 09:06] VITALS: BP 118/64
[2019-10-11] MEDS: ACETAMINOPHEN 325 MG TABLET PO PRN ×2 (09:24→15:25)
[2019-10-11] MEDS: ZINC SULFATE 220 MG CAPSULE PO SCH ×2 (09:24→20:13)
[2019-10-11] MEDS: ENOXAPARIN SODIUM 60 MG/0.6 ML PF SYRINGE SQ SCH ×2 (09:24→20:13)
[2019-10-11] MEDS: PANTOPRAZOLE SODIUM 40 MG DR TABLET PO SCH (09:24)
[2019-10-11 10:18] LABS: GLUCOMETER DEV NAME(LOC) 5S.2A; GLUCOSE,POINT OF CARE 123 MG/DL (70-110)
[2019-10-11 12:07] VITALS: BP 110/61
[2019-10-11 14:12] LABS: GLUCOMETER DEV NAME(LOC) 5S.2A; GLUCOSE,POINT OF CARE 124 MG/DL (70-110)
[2019-10-11 15:15] VITALS: BP 113/67
[2019-10-11] MEDS ORDERED: ACETAMINOPHEN 325 MG TABLET PO PRN (16:00)
[2019-10-11] MEDS ORDERED: MORPHINE SULFATE 2 MG/ML SYRINGE IVP PRN (16:00)
[2019-10-11] MEDS ORDERED: MAGNESIUM HYDROXIDE SUSPENSION 30 ML UDCUP PO PRN (16:00)
[2019-10-11] MEDS ORDERED: OxyCODONE HCL/ACETAMINOPHEN 5-325 MG TABLET PO PRN (16:00)
[2019-10-11] MEDS ORDERED: ZOLPIDEM TARTRATE 5 MG TABLET PO PRN (16:00)
[2019-10-11] MEDS ORDERED: ONDANSETRON HCL 4 MG/2 ML VIAL IVP PRN (16:00)
[2019-10-11] MEDS ORDERED: *CLINICAL-AZTREONAM DOSING CLINICAL ONE (17:15)
[2019-10-11 18:00] LABS: GLUCOMETER DEV NAME(LOC) 5S.2A; GLUCOSE,POINT OF CARE 99 MG/DL (70-110)
[2019-10-11 19:41] LABS: BASOPHILS % (AUTO) 0.7 % (0.0-2.0); EOSINOPHILS % (AUTO) 0.4 % (1.0-6.0); HEMATOCRIT 36.6 % (41-53); HEMOGLOBIN 12.1 g/dL (13.5-17.5); LYMPHOCYTES # (AUTO) 0.8 K/uL (1.0-4.8); LYMPHOCYTES % (AUTO) 7.3 % (22.0-44.0); MEAN CORPUSCULAR HEMOGLOBIN 28.9 pg (26.0-34.0); MEAN CORPUSCULAR VOLUME 88 fL (80-100); MONOCYTES # (AUTO) 0.9 K/uL (0.1-1.0); MONOCYTES % (AUTO) 8.1 % (2.0-9.0); NEUTROPHILS # (AUTO) 9.3 K/uL (1.8-7.7); NEUTROPHILS % (AUTO) 83.5 % (40.0-70.0); PLATELET COUNT (AUTO) 430 K/uL (150-450); RED BLOOD CELL COUNT(AUTO) 4.17 MIL/uL (4.50-5.90); RED CELL DISTRIBUTION WIDTH 13.4 % (11.5-14.5)
[2019-10-11 20:03] VITALS: BP 114/58
[2019-10-11] MEDS: VANCOMYCIN HCL 1.5 GM in DEXTROSE 5%-WATER 250 ML IV SCH (20:13)
[2019-10-11 20:15] LABS: ANION GAP 6 mmol/L (8-16); CALCIUM, TOTAL 8.6 mg/dL (8.8-10.5); CARBON DIOXIDE 30 mmol/L (22-29); CHLORIDE 98 mmol/L (98-107); CREATININE 0.81 mg/dL (0.60-1.30); GLOMERULAR FILTR. RATE CALC > 60 mL/min (>60); GLUCOSE,RANDOM 94 mg/dL (70-110); POTASSIUM 4.7 mmol/L (3.5-5.1); SODIUM SERUM 134 mmol/L (136-145); UREA NITROGEN, BLOOD 15 mg/dL (7-18)
[2019-10-11 20:20] LABS: ALANINE AMINOTRANSFERASE 151 U/L (12-78); ALBUMIN 1.8 g/dL (3.4-5.0); ALKALINE PHOSPHATASE 137 U/L (46-116); ASPARTATE AMINOTRANSFERASE 87 U/L (15-37); BILIRUBIN,TOTAL 0.7 mg/dL (0.1-1.0); TOTAL PROTEIN, SERUM 7.3 g/dL (6.4-8.2)
[2019-10-11] MEDS: AZTREONAM 1 GM in DEXTROSE 5%-WATER 50 ML IV SCH (21:52)
[2019-10-11] MEDS: BISACODYL 10 MG RECTAL RECTAL SUPPOSITORY PR PRN (22:47)
[2019-10-11 23:46] LABS: ABG A-A DIFF O2 618.2 mmHg (10-20.0); ABG BASE EXCESS -0.1 mmol/L (-2.0-3.0); ABG CARBOXYHEMOGLOBIN 0.6 % (0.0-1.5); ABG HCO3 24.6 mmol/L (22.0-26.0); ABG METHEMOGLOBIN 0.3 % (0.0-1.5); ABG OXYGEN SATURATION 90.3 % (95.0-98.0); ABG OXYHEMOGLOBIN 89.5 % (94.0-100.0); ABG PCO2 35 mmHg (35-45); ABG PH 7.448 (7.35-7.450); ABG TOTAL HEMOGLOBIN 12.7 G/dL (12.0-18.0); PO2, ARTERIAL BG 59.2 mmHg (79.0-87.0); SITE, BLOOD GAS RT BRACHIAL; SOURCE, BLOOD GAS ARTERIAL; TEMPERATURE, FAHRENHEIT, BG 98.8 FAHREN (96.0-98.6)
[2019-10-11 23:47] LABS: O2 DEVICE,BLOOD GAS NON REBREATHER (ROOM AIR)
[2019-10-12 00:10] VITALS: BP 119/63
[2019-10-12] MEDS: ALBUTEROL SULFATE/IPRATROPIUM 100-20 MCG/SPRAY 4 GM INHALER IH SCH ×4 (00:29→18:28)
[2019-10-12 05:44] VITALS: BP 145/77
[2019-10-12] MEDS: AZTREONAM 1 GM in DEXTROSE 5%-WATER 50 ML IV SCH ×3 (06:22→22:29)
[2019-10-12 07:44] VITALS: BP 113/74
[2019-10-12 07:48] LABS: BASOPHILS % (AUTO) 0.3 % (0.0-2.0); EOSINOPHILS % (AUTO) 0.2 % (1.0-6.0); HEMATOCRIT 35.5 % (41-53); LYMPHOCYTES # (AUTO) 0.6 K/uL (1.0-4.8); LYMPHOCYTES % (AUTO) 5.9 % (22.0-44.0); MEAN CORPUSCULAR HEMOGLOBIN 29.5 pg (26.0-34.0); MEAN CORPUSCULAR HGB CONC 33.8 G/dL (31.0-37.0); MEAN CORPUSCULAR VOLUME 87 fL (80-100); MONOCYTES % (AUTO) 9.6 % (2.0-9.0); PLATELET COUNT (AUTO) 437 K/uL (150-450); RED BLOOD CELL COUNT(AUTO) 4.07 MIL/uL (4.50-5.90); RED CELL DISTRIBUTION WIDTH 13.2 % (11.5-14.5)
[2019-10-12 08:01] LABS: GLUCOMETER DEV NAME(LOC) 5S.2A; GLUCOSE,POINT OF CARE 77 MG/DL (70-110)
[2019-10-12] MEDS: VANCOMYCIN HCL 1.5 GM in DEXTROSE 5%-WATER 250 ML IV SCH ×2 (08:09→21:09)
[2019-10-12] MEDS: DOCUSATE SODIUM 100 MG CAPSULE PO SCH (08:09)
[2019-10-12] MEDS: PANTOPRAZOLE SODIUM 40 MG DR TABLET PO SCH (08:09)
[2019-10-12] MEDS: ZINC SULFATE 220 MG CAPSULE PO SCH ×2 (08:09→21:10)
[2019-10-12] MEDS: ENOXAPARIN SODIUM 60 MG/0.6 ML PF SYRINGE SQ SCH ×2 (08:10→21:09)
[2019-10-12 08:52] LABS: ALANINE AMINOTRANSFERASE 118 U/L (12-78); ALBUMIN 1.7 g/dL (3.4-5.0); ALKALINE PHOSPHATASE 133 U/L (46-116); ANION GAP 7 mmol/L (8-16); ASPARTATE AMINOTRANSFERASE 57 U/L (15-37); BILIRUBIN,TOTAL 0.6 mg/dL (0.1-1.0); CALCIUM, TOTAL 8.5 mg/dL (8.8-10.5); CARBON DIOXIDE 30 mmol/L (22-29); CHLORIDE 94 mmol/L (98-107); CREATININE 0.92 mg/dL (0.60-1.30); FERRITIN 1569 ng/mL (26-388); GLOMERULAR FILTR. RATE CALC > 60 mL/min (>60); GLUCOSE,RANDOM 98 mg/dL (70-110); POTASSIUM 4.9 mmol/L (3.5-5.1); SODIUM SERUM 131 mmol/L (136-145); TOTAL PROTEIN, SERUM 6.9 g/dL (6.4-8.2); UREA NITROGEN, BLOOD 15 mg/dL (7-18)
[2019-10-12] MEDS ORDERED: SODIUM CHLORIDE 0.9% 250 ML IV ONE (09:40)
[2019-10-12 12:27] LABS: GLUCOMETER DEV NAME(LOC) 5N.3; GLUCOSE,POINT OF CARE 108 MG/DL (70-110)
[2019-10-12 12:27] LABS: GLUCOMETER DEV NAME(LOC) 5N.3; GLUCOSE,POINT OF CARE 102 MG/DL (70-110)
[2019-10-12 12:28] LABS: GLUCOMETER DEV NAME(LOC) 5N.3; GLUCOSE,POINT OF CARE 113 MG/DL (70-110)
[2019-10-12 13:15] LABS: APPEARANCE,URINE CLOUDY (CLEAR); BILIRUBIN,URINE NEGATIVE (NEGATIVE); GLUCOSE, URINE (UA) NEGATIVE (NEGATIVE); KETONES,URINE NEGATIVE (NEGATIVE); LEUKOCYTE ESTERASE ,URINE NEGATIVE (NEGATIVE); NITRATE,URINE NEGATIVE (NEGATIVE); OCCULT BLOOD,URINE NEGATIVE (NEGATIVE); PH,URINE 6.5 (5.0-8.0); PROTEIN,URINE TRACE (NEGATIVE)
[2019-10-12 14:33] LABS: BACTERIA,URINE Few /HPF (None Seen); RBC,URINE None Seen /HPF (0-2); SQUAMOUS EPITHELIAL CELL,UR Few /LPF (None Seen); WBC,URINE 0-2 /HPF (0-5)
[2019-10-12 15:55] VITALS: BP 129/77
[2019-10-12 17:24] LABS: ABG A-A DIFF O2 617.5 mmHg (10-20.0); ABG BASE EXCESS 2.3 mmol/L (-2.0-3.0); ABG CARBOXYHEMOGLOBIN 0.5 % (0.0-1.5); ABG HCO3 26.4 mmol/L (22.0-26.0); ABG METHEMOGLOBIN 0.3 % (0.0-1.5); ABG OXYGEN CONTENT 15.5 mL/dL (15.0-23.0); ABG OXYGEN SATURATION 90.8 % (95.0-98.0); ABG OXYHEMOGLOBIN 90.1 % (94.0-100.0); ABG PCO2 37 mmHg (35-45); ABG PH 7.466 (7.35-7.450); ABG TOTAL HEMOGLOBIN 12.2 G/dL (12.0-18.0); O2 DEVICE,BLOOD GAS HI FL CANNULA (ROOM AIR); PO2, ARTERIAL BG 58.6 mmHg (79.0-87.0); SITE, BLOOD GAS LFT RADIAL; SOURCE, BLOOD GAS ARTERIAL; TEMPERATURE, FAHRENHEIT, BG 98.6 FAHREN (96.0-98.6)
[2019-10-12 21:07] VITALS: BP 118/70
[2019-10-12] MEDS: ACETAMINOPHEN 325 MG TABLET PO PRN (21:09)
[2019-10-13 00:29] VITALS: BP 103/57
[2019-10-13] MEDS: ALBUTEROL SULFATE/IPRATROPIUM 100-20 MCG/SPRAY 4 GM INHALER IH SCH ×4 (00:35→18:00)
[2019-10-13 05:01] VITALS: BP 114/72
[2019-10-13] MEDS: ACETAMINOPHEN 325 MG TABLET PO PRN (05:17)
[2019-10-13 05:51] LABS: GLUCOMETER DEV NAME(LOC) 5S.2A; GLUCOSE,POINT OF CARE 145 MG/DL (70-110)
[2019-10-13] MEDS: AZTREONAM 1 GM in DEXTROSE 5%-WATER 50 ML IV SCH ×3 (06:26→22:27)
[2019-10-13 07:15] LABS: BASOPHILS % (AUTO) 0.4 % (0.0-2.0); EOSINOPHILS % (AUTO) 0.3 % (1.0-6.0); HEMOGLOBIN 11.5 g/dL (13.5-17.5); LYMPHOCYTES # (AUTO) 0.6 K/uL (1.0-4.8); LYMPHOCYTES % (AUTO) 5.4 % (22.0-44.0); MEAN CORPUSCULAR HEMOGLOBIN 29.6 pg (26.0-34.0); MEAN CORPUSCULAR HGB CONC 33.9 G/dL (31.0-37.0); MEAN CORPUSCULAR VOLUME 88 fL (80-100); MONOCYTES # (AUTO) 1.1 K/uL (0.1-1.0); MONOCYTES % (AUTO) 10.2 % (2.0-9.0); NEUTROPHILS # (AUTO) 9.2 K/uL (1.8-7.7); NEUTROPHILS % (AUTO) 83.7 % (40.0-70.0); PLATELET COUNT (AUTO) 421 K/uL (150-450); RED BLOOD CELL COUNT(AUTO) 3.89 MIL/uL (4.50-5.90); RED CELL DISTRIBUTION WIDTH 13.4 % (11.5-14.5)
[2019-10-13 07:57] LABS: GLUCOMETER DEV NAME(LOC) 5S.2A; GLUCOSE,POINT OF CARE 102 MG/DL (70-110)
[2019-10-13 08:00] VITALS: BP 115/73
[2019-10-13] MEDS: VANCOMYCIN HCL 1.25 GM in DEXTROSE 5%-WATER 250 ML IV SCH ×2 (08:00→15:32)
[2019-10-13 08:22] LABS: ALANINE AMINOTRANSFERASE 92 U/L (12-78); ALBUMIN 1.6 g/dL (3.4-5.0); ALKALINE PHOSPHATASE 142 U/L (46-116); ANION GAP 8 mmol/L (8-16); ASPARTATE AMINOTRANSFERASE 48 U/L (15-37); BILIRUBIN,TOTAL 0.6 mg/dL (0.1-1.0); CALCIUM, TOTAL 8.4 mg/dL (8.8-10.5); CARBON DIOXIDE 26 mmol/L (22-29); CHLORIDE 94 mmol/L (98-107); CREATININE 0.89 mg/dL (0.60-1.30); GLOMERULAR FILTR. RATE CALC > 60 mL/min (>60); GLUCOSE,RANDOM 107 mg/dL (70-110); POTASSIUM 4.4 mmol/L (3.5-5.1); SODIUM SERUM 128 mmol/L (136-145); TOTAL PROTEIN, SERUM 6.9 g/dL (6.4-8.2); UREA NITROGEN, BLOOD 13 mg/dL (7-18); VANCOMYCIN,RANDOM 10.5 mcg/mL (25.0-50.0)
[2019-10-13] MEDS: ZINC SULFATE 220 MG CAPSULE PO SCH ×2 (09:00→23:15)
[2019-10-13] MEDS: DOCUSATE SODIUM 100 MG CAPSULE PO SCH (09:00)
[2019-10-13] MEDS: ENOXAPARIN SODIUM 60 MG/0.6 ML PF SYRINGE SQ SCH ×2 (09:00→23:16)
[2019-10-13] MEDS: PANTOPRAZOLE SODIUM 40 MG DR TABLET PO SCH (09:00)
[2019-10-13 09:22] LABS: FERRITIN 1640 ng/mL (26-388)
[2019-10-13 09:33] LABS: C-REACTIVE PROTEIN QUANT 26.08 mg/dL (0.00-0.30)
[2019-10-13 12:30] VITALS: BP 112/52
[2019-10-13] MEDS: INSULIN LISPRO 100 UNITS/ML SQ PRN (12:46)
[2019-10-13 13:07] LABS: GLUCOMETER DEV NAME(LOC) 5S.2A; GLUCOSE,POINT OF CARE 142 MG/DL (70-110)
[2019-10-13] MEDS: BISACODYL 10 MG RECTAL RECTAL SUPPOSITORY PR PRN (15:32)
[2019-10-13] MEDS ORDERED: SODIUM CHLORIDE 0.9% 250 ML IV ONE (19:26)
[2019-10-13 19:42] VITALS: BP 100/42
[2019-10-13] MEDS ORDERED: MIDAZOLAM HCL 2 MG/2 ML VIAL ONE (21:02)
[2019-10-13] MEDS ORDERED: FentaNYL CITRATE-PF 100 MCG/2 ML VIAL ONE (21:03)
[2019-10-13] MEDS ORDERED: PROPOFOL 1000 MG/ISO-OSM 100 ML IV ONE (21:03)
[2019-10-13] MEDS: FentaNYL CITRATE PF 500 MCG in DEXTROSE 5%-WATER 90 ML IV PRN (22:46)
[2019-10-13 23:30] LABS: ABG BASE EXCESS -2.6 mmol/L (-2.0-3.0); ABG CARBOXYHEMOGLOBIN 0.3 % (0.0-1.5); ABG HCO3 21.9 mmol/L (22.0-26.0); ABG METHEMOGLOBIN 0.3 % (0.0-1.5); ABG OXYGEN CONTENT 14.5 mL/dL (15.0-23.0); ABG OXYHEMOGLOBIN 83.6 % (94.0-100.0); ABG PCO2 46 mmHg (35-45); ABG PH 7.324 (7.35-7.450); ABG TOTAL HEMOGLOBIN 12.3 G/dL (12.0-18.0); SOURCE, BLOOD GAS ARTERIAL; TEMPERATURE, FAHRENHEIT, BG 98.6 FAHREN (96.0-98.6)
[2019-10-13] MEDS ORDERED: REMDESIVIR **INVESTIGATIONAL** 200 MG in SODIUM CHLORIDE 0.9% 210 ML IV ONE (23:30)
[2019-10-13 23:31] LABS: ABG OXYGEN SATURATION 84.1 % (95.0-98.0); O2 DEVICE,BLOOD GAS VENTILATOR (ROOM AIR); PEEP,BG 10 cm H2O; SITE, BLOOD GAS ARTERIAL LINE; VENT MODE, BG Press. Control Vent (ROOM AIR)
[2019-10-13] MEDS ORDERED: CISATRACURIUM BESYLATE 20 MG in DEXTROSE 5%-WATER 90 ML IV PRN (23:41)
[2019-10-13] MEDS: PROPOFOL 1000 MG/ISO-OSM 100 ML IV PRN ×2 (23:42→23:47)
[2019-10-13] MEDS: NOREPINEPHRINE 4 MG/D5%-WATER 250 ML IV PRN (23:43)
[2019-10-13] MEDS ORDERED: CISATRACURIUM BESYLATE 2 MG/ML 10 ML VIAL IVP ONE (23:45)
[2019-10-14] VITALS: BP 101/43
[2019-10-14] MEDS ORDERED: MIDAZOLAM HCL 2 MG/2 ML VIAL IVP ONE
[2019-10-14] MEDS ORDERED: ROCURONIUM BROMIDE 10 MG/ML 5 ML VIAL IVP ONE
[2019-10-14] MEDS ORDERED: FentaNYL CITRATE-PF 100 MCG/2 ML VIAL IVP ONE
[2019-10-14] MEDS ORDERED: PROPOFOL 1% 20 ML VIAL IVP ONE
[2019-10-14] MEDS ORDERED: LIDOCAINE/PF 2% 5 ML VIAL INJ ONE
[2019-10-14] MEDS: INSULIN LISPRO 100 UNITS/ML SQ PRN ×4 (00:07→23:58)
[2019-10-14] MEDS ORDERED: HEPARIN SODIUM 1000 UNITS/NS 500 ML ONE (00:07)
[2019-10-14] MEDS: MIDAZOLAM HCL 100 MG in DEXTROSE 5%-WATER 180 ML IV PRN (00:25)
[2019-10-14] MEDS: FentaNYL CITRATE PF 500 MCG in DEXTROSE 5%-WATER 90 ML IV PRN ×6 (01:07→22:03)
[2019-10-14] MEDS: PROPOFOL 1000 MG/ISO-OSM 100 ML IV PRN ×6 (03:38→22:02)
[2019-10-14 04:00] VITALS: BP 118/48
[2019-10-14 04:40] LABS: GLUCOSE,POINT OF CARE 140 MG/DL (70-110)
[2019-10-14] MEDS: AZTREONAM 1 GM in DEXTROSE 5%-WATER 50 ML IV SCH ×2 (05:26→13:52)
[2019-10-14] MEDS: NOREPINEPHRINE 4 MG/D5%-WATER 250 ML IV PRN ×3 (06:22→20:13)
[2019-10-14 06:46] LABS: GLUCOMETER DEV NAME(LOC) 4E.2; GLUCOSE,POINT OF CARE 200 MG/DL (70-110)
[2019-10-14 06:58] LABS: BASOPHILS % (AUTO) 0.5 % (0.0-2.0); EOSINOPHILS % (AUTO) 0.1 % (1.0-6.0); HEMOGLOBIN 11.4 g/dL (13.5-17.5); LYMPHOCYTES # (AUTO) 0.9 K/uL (1.0-4.8); LYMPHOCYTES % (AUTO) 5.4 % (22.0-44.0); MEAN CORPUSCULAR HEMOGLOBIN 30.1 pg (26.0-34.0); MEAN CORPUSCULAR HGB CONC 34.5 G/dL (31.0-37.0); MEAN CORPUSCULAR VOLUME 87 fL (80-100); MONOCYTES # (AUTO) 1.3 K/uL (0.1-1.0); MONOCYTES % (AUTO) 7.3 % (2.0-9.0); NEUTROPHILS # (AUTO) 15.1 K/uL (1.8-7.7); PLATELET COUNT (AUTO) 464 K/uL (150-450); RED BLOOD CELL COUNT(AUTO) 3.78 MIL/uL (4.50-5.90); RED CELL DISTRIBUTION WIDTH 13.4 % (11.5-14.5)
[2019-10-14 07:33] LABS: NEUTROPHILS % (AUTO) 86.7 % (40.0-70.0)
[2019-10-14 07:51] LABS: ALANINE AMINOTRANSFERASE 88 U/L (12-78); ALBUMIN 1.4 g/dL (3.4-5.0); ALKALINE PHOSPHATASE 161 U/L (46-116); ANION GAP 9 mmol/L (8-16); ASPARTATE AMINOTRANSFERASE 59 U/L (15-37); BILIRUBIN,TOTAL 0.4 mg/dL (0.1-1.0); CALCIUM, TOTAL 8.1 mg/dL (8.8-10.5); CARBON DIOXIDE 25 mmol/L (22-29); CHLORIDE 92 mmol/L (98-107); CREATININE 1.19 mg/dL (0.60-1.30); FERRITIN 1800 ng/mL (26-388); GLOMERULAR FILTR. RATE CALC > 60 mL/min (>60); GLUCOSE,RANDOM 192 mg/dL (70-110); LACTATE DEHYDROGENASE 238 U/L (85-227); POTASSIUM 4.2 mmol/L (3.5-5.1); SODIUM SERUM 126 mmol/L (136-145); TOTAL PROTEIN, SERUM 6.7 g/dL (6.4-8.2); UREA NITROGEN, BLOOD 18 mg/dL (7-18)
[2019-10-14 08:00] VITALS: BP 104/42
[2019-10-14 08:09] LABS: C-REACTIVE PROTEIN QUANT 28.96 mg/dL (0.00-0.30)
[2019-10-14] MEDS: PANTOPRAZOLE SODIUM 40 MG DR TABLET PO SCH (10:36)
[2019-10-14] MEDS: ENOXAPARIN SODIUM 60 MG/0.6 ML PF SYRINGE SQ SCH ×2 (10:36→22:02)
[2019-10-14] MEDS: DOCUSATE SODIUM 100 MG CAPSULE PO SCH (10:36)
[2019-10-14] MEDS: ZINC SULFATE 220 MG CAPSULE PO SCH ×2 (10:36→22:01)
[2019-10-14 12:00] VITALS: BP 94/40
[2019-10-14] MEDS: ACETAMINOPHEN 325 MG TABLET PO PRN (13:00)
[2019-10-14] MEDS ORDERED: TOCILIZUMAB 700 MG in SODIUM CHLORIDE 0.9% 65 ML IV ONE (14:45)
[2019-10-14 16:00] VITALS: BP 124/44
[2019-10-14 16:14] LABS: ABG A-A DIFF O2 599.5 mmHg (10-20.0); ABG BASE EXCESS 0.3 mmol/L (-2.0-3.0); ABG CARBOXYHEMOGLOBIN 0.4 % (0.0-1.5); ABG HCO3 24.5 mmol/L (22.0-26.0); ABG METHEMOGLOBIN 0.3 % (0.0-1.5); ABG OXYHEMOGLOBIN 88.4 % (94.0-100.0); ABG PCO2 46 mmHg (35-45); ABG PH 7.363 (7.35-7.450); ABG TOTAL HEMOGLOBIN 12.1 G/dL (12.0-18.0); SOURCE, BLOOD GAS ARTERIAL; TEMPERATURE, FAHRENHEIT, BG 101.3 FAHREN (96.0-98.6)
[2019-10-14 16:17] LABS: O2 DEVICE,BLOOD GAS VENTILATOR (ROOM AIR); PEEP,BG 10 cm H2O; SITE, BLOOD GAS ARTERIAL LINE; VENT MODE, BG Press. Control Vent (ROOM AIR)
[2019-10-14] MEDS: CISATRACURIUM BESYLATE 50 MG in DEXTROSE 5%-WATER 245 ML IV PRN ×2 (19:58→22:02)
[2019-10-14 20:00] VITALS: BP 118/60
[2019-10-14] MEDS: REMDESIVIR **INVESTIGATIONAL** 100 MG in SODIUM CHLORIDE 0.9% 230 ML IV SCH (23:43)
[2019-10-14] MEDS: NOREPINEPHRINE BITARTRATE 16 MG in DEXTROSE 5%-WATER 234 ML IV PRN (23:56)
[2019-10-15] VITALS: BP 100/56
[2019-10-15] MEDS: PROPOFOL 1000 MG/ISO-OSM 100 ML IV PRN ×6 (02:20→22:51)
[2019-10-15 02:49] LABS: GLUCOMETER DEV NAME(LOC) 4E.2; GLUCOSE,POINT OF CARE 188 MG/DL (70-110)
[2019-10-15 02:49] LABS: GLUCOMETER DEV NAME(LOC) 4E.2; GLUCOSE,POINT OF CARE 141 MG/DL (70-110)
[2019-10-15 02:49] LABS: GLUCOSE,POINT OF CARE 155 MG/DL (70-110)
[2019-10-15 04:00] VITALS: BP 101/58
[2019-10-15] MEDS: CISATRACURIUM BESYLATE 50 MG in DEXTROSE 5%-WATER 245 ML IV PRN ×3 (05:47→19:58)
[2019-10-15] MEDS ORDERED: ROCURONIUM BROMIDE 10 MG/ML 5 ML VIAL IVP ONE (06:14)
[2019-10-15] MEDS ORDERED: PROPOFOL 1% 20 ML VIAL IVP ONE (06:14)
[2019-10-15] MEDS ORDERED: LIDOCAINE/PF 2% 5 ML VIAL IM ONE (06:14)
[2019-10-15 06:29] LABS: EOSINOPHILS % (AUTO) 2.2 % (1.0-6.0); HEMATOCRIT 32.9 % (41-53); LYMPHOCYTES # (AUTO) 0.8 K/uL (1.0-4.8); LYMPHOCYTES % (AUTO) 7.5 % (22.0-44.0); MEAN CORPUSCULAR HEMOGLOBIN 29.3 pg (26.0-34.0); MEAN CORPUSCULAR HGB CONC 33.4 G/dL (31.0-37.0); MEAN CORPUSCULAR VOLUME 88 fL (80-100); MONOCYTES # (AUTO) 0.6 K/uL (0.1-1.0); MONOCYTES % (AUTO) 5.7 % (2.0-9.0); NEUTROPHILS % (AUTO) 83.6 % (40.0-70.0); PLATELET COUNT (AUTO) 423 K/uL (150-450); RED BLOOD CELL COUNT(AUTO) 3.75 MIL/uL (4.50-5.90); RED CELL DISTRIBUTION WIDTH 13.6 % (11.5-14.5)
[2019-10-15 07:31] LABS: ALANINE AMINOTRANSFERASE 58 U/L (12-78); ALBUMIN 1.3 g/dL (3.4-5.0); ALKALINE PHOSPHATASE 149 U/L (46-116); ANION GAP 3 mmol/L (8-16); ASPARTATE AMINOTRANSFERASE 25 U/L (15-37); BILIRUBIN,TOTAL 0.3 mg/dL (0.1-1.0); CALCIUM, TOTAL 8.2 mg/dL (8.8-10.5); CARBON DIOXIDE 29 mmol/L (22-29); CHLORIDE 95 mmol/L (98-107); CREATININE 1.12 mg/dL (0.60-1.30); GLOMERULAR FILTR. RATE CALC > 60 mL/min (>60); GLUCOSE,RANDOM 138 mg/dL (70-110); LACTATE DEHYDROGENASE 219 U/L (85-227); POTASSIUM 4.1 mmol/L (3.5-5.1); SODIUM SERUM 127 mmol/L (136-145); TOTAL PROTEIN, SERUM 6.4 g/dL (6.4-8.2); UREA NITROGEN, BLOOD 22 mg/dL (7-18)
[2019-10-15 07:40] LABS: C-REACTIVE PROTEIN QUANT 26.11 mg/dL (0.00-0.30)
[2019-10-15 08:00] VITALS: BP 100/45
[2019-10-15 08:20] LABS: FERRITIN 1912 ng/mL (26-388)
[2019-10-15] MEDS: ZINC SULFATE 220 MG CAPSULE PO SCH ×2 (08:57→21:00)
[2019-10-15] MEDS: PANTOPRAZOLE SODIUM 40 MG DR TABLET PO SCH (08:57)
[2019-10-15] MEDS: ENOXAPARIN SODIUM 60 MG/0.6 ML PF SYRINGE SQ SCH ×2 (08:57→21:00)
[2019-10-15] MEDS: DOCUSATE SODIUM 100 MG CAPSULE PO SCH (08:57)
[2019-10-15] MEDS: FentaNYL CITRATE PF 500 MCG in DEXTROSE 5%-WATER 90 ML IV PRN ×3 (10:06→22:52)
[2019-10-15] MEDS: MIDAZOLAM HCL 100 MG in DEXTROSE 5%-WATER 180 ML IV PRN (10:07)
[2019-10-15 12:00] VITALS: BP 105/48
[2019-10-15 12:36] LABS: PHOSPHORUS 5.3 mg/dL (2.5-4.9)
[2019-10-15 13:00] LABS: ABG A-A DIFF O2 590.9 mmHg (10-20.0); ABG CARBOXYHEMOGLOBIN 0.3 % (0.0-1.5); ABG HCO3 26.3 mmol/L (22.0-26.0); ABG METHEMOGLOBIN 0.3 % (0.0-1.5); ABG OXYGEN SATURATION 92.9 % (95.0-98.0); ABG OXYHEMOGLOBIN 92.3 % (94.0-100.0); ABG PCO2 53 mmHg (35-45); ABG PH 7.348 (7.35-7.450); ABG TOTAL HEMOGLOBIN 12.3 G/dL (12.0-18.0); PO2, ARTERIAL BG 68.2 mmHg (79.0-87.0); SOURCE, BLOOD GAS ARTERIAL; TEMPERATURE, FAHRENHEIT, BG 98.9 FAHREN (96.0-98.6)
[2019-10-15 13:06] LABS: O2 DEVICE,BLOOD GAS VENTILATOR (ROOM AIR); PEEP,BG 10 cm H2O; SITE, BLOOD GAS A LINE; VENT MODE, BG Press. Control Vent (ROOM AIR)
[2019-10-15 13:07] LABS: SPONTANEOUS VT, BG 385 ml
[2019-10-15 16:00] VITALS: BP 104/47
[2019-10-15 20:00] VITALS: BP 101/45
[2019-10-15 23:46] LABS: GLUCOMETER DEV NAME(LOC) 4E.2; GLUCOSE,POINT OF CARE 126 MG/DL (70-110)
[2019-10-16] VITALS: BP 83/42
[2019-10-16] MEDS: NOREPINEPHRINE BITARTRATE 16 MG in DEXTROSE 5%-WATER 234 ML IV PRN ×2 (00:26→11:23)
[2019-10-16] MEDS: CISATRACURIUM BESYLATE 50 MG in DEXTROSE 5%-WATER 245 ML IV PRN ×7 (00:47→19:42)
[2019-10-16] MEDS: PROPOFOL 1000 MG/ISO-OSM 100 ML IV PRN ×6 (01:35→19:41)
[2019-10-16] MEDS: REMDESIVIR **INVESTIGATIONAL** 100 MG in SODIUM CHLORIDE 0.9% 230 ML IV SCH ×2 (01:58→23:12)
[2019-10-16] MEDS: FentaNYL CITRATE PF 500 MCG in DEXTROSE 5%-WATER 90 ML IV PRN ×4 (02:34→15:51)
[2019-10-16 06:31] LABS: EOSINOPHILS % (AUTO) 3.9 % (1.0-6.0); HEMATOCRIT 34.2 % (41-53); HEMOGLOBIN 11.3 g/dL (13.5-17.5); LYMPHOCYTES # (AUTO) 0.8 K/uL (1.0-4.8); LYMPHOCYTES % (AUTO) 8.3 % (22.0-44.0); MEAN CORPUSCULAR HEMOGLOBIN 29.3 pg (26.0-34.0); MEAN CORPUSCULAR HGB CONC 33.1 G/dL (31.0-37.0); MEAN CORPUSCULAR VOLUME 89 fL (80-100); MONOCYTES # (AUTO) 0.6 K/uL (0.1-1.0); NEUTROPHILS # (AUTO) 7.9 K/uL (1.8-7.7); NEUTROPHILS % (AUTO) 80.8 % (40.0-70.0); PLATELET COUNT (AUTO) 464 K/uL (150-450); RED BLOOD CELL COUNT(AUTO) 3.86 MIL/uL (4.50-5.90); RED CELL DISTRIBUTION WIDTH 13.9 % (11.5-14.5)
[2019-10-16] MEDS: INSULIN LISPRO 100 UNITS/ML SQ PRN ×2 (06:47→18:32)
[2019-10-16 07:52] LABS: ALANINE AMINOTRANSFERASE 49 U/L (12-78); ALBUMIN 1.4 g/dL (3.4-5.0); ALKALINE PHOSPHATASE 137 U/L (46-116); ANION GAP 8 mmol/L (8-16); ASPARTATE AMINOTRANSFERASE 36 U/L (15-37); BILIRUBIN,TOTAL 0.2 mg/dL (0.1-1.0); C-REACTIVE PROTEIN QUANT 13.26 mg/dL (0.00-0.30); CARBON DIOXIDE 28 mmol/L (22-29); CHLORIDE 96 mmol/L (98-107); CREATININE 1.08 mg/dL (0.60-1.30); FERRITIN 1744 ng/mL (26-388); GLOMERULAR FILTR. RATE CALC > 60 mL/min (>60); GLUCOSE,RANDOM 166 mg/dL (70-110); POTASSIUM 4.9 mmol/L (3.5-5.1); SODIUM SERUM 132 mmol/L (136-145); TOTAL PROTEIN, SERUM 6.4 g/dL (6.4-8.2); UREA NITROGEN, BLOOD 23 mg/dL (7-18)
[2019-10-16 08:00] VITALS: BP 113/46
[2019-10-16] MEDS: DOCUSATE SODIUM 100 MG CAPSULE PO SCH (09:13)
[2019-10-16] MEDS: ZINC SULFATE 220 MG CAPSULE PO SCH ×2 (09:13→22:08)
[2019-10-16] MEDS: PANTOPRAZOLE SODIUM 40 MG DR TABLET PO SCH (09:13)
[2019-10-16] MEDS: ENOXAPARIN SODIUM 60 MG/0.6 ML PF SYRINGE SQ SCH ×2 (09:13→22:09)
[2019-10-16 10:00] VITALS: BP 121/62
[2019-10-16 10:18] LABS: QUANTIFERON+, Nil Value 0.03 IU/mL; QUANTIFERON+,Mitogen Value 0.24 IU/mL; QUANTIFERON+,TB1 Antigen Value 0.16 IU/mL; QUANTIFERON, TB GOLD PLUS Indeterminate (Negative)
[2019-10-16] MEDS: MIDAZOLAM HCL 100 MG in DEXTROSE 5%-WATER 180 ML IV PRN (11:21)
[2019-10-16 12:00] VITALS: BP 147/60
[2019-10-16 16:00] VITALS: BP 134/54
[2019-10-16 20:00] VITALS: BP 110/57
[2019-10-16 20:32] LABS: GLUCOSE,POINT OF CARE 149 MG/DL (70-110)
[2019-10-16 20:32] LABS: GLUCOSE,POINT OF CARE 158 MG/DL (70-110)
[2019-10-17] VITALS: BP 129/52
[2019-10-17] MEDS: PROPOFOL 1000 MG/ISO-OSM 100 ML IV PRN ×6 (00:23→17:15)
[2019-10-17] MEDS: HEPARIN SODIUM 1000 UNITS/NS 500 ML IV SCH (03:00)
[2019-10-17] MEDS ORDERED: SODIUM CHLORIDE 0.9% 500 ML IV ONE (03:40)
[2019-10-17 04:00] VITALS: BP 125/95
[2019-10-17] MEDS: INSULIN LISPRO 100 UNITS/ML SQ PRN ×2 (05:15→17:53)
[2019-10-17 06:00] LABS: BASOPHILS % (AUTO) 0.7 % (0.0-2.0); EOSINOPHILS % (AUTO) 2.6 % (1.0-6.0); HEMATOCRIT 38.7 % (41-53); HEMOGLOBIN 12.6 g/dL (13.5-17.5); LYMPHOCYTES # (AUTO) 0.6 K/uL (1.0-4.8); LYMPHOCYTES % (AUTO) 4.9 % (22.0-44.0); MEAN CORPUSCULAR HGB CONC 32.5 G/dL (31.0-37.0); MEAN CORPUSCULAR VOLUME 89 fL (80-100); MONOCYTES # (AUTO) 0.7 K/uL (0.1-1.0); MONOCYTES % (AUTO) 6.4 % (2.0-9.0); NEUTROPHILS # (AUTO) 9.9 K/uL (1.8-7.7); PLATELET COUNT (AUTO) 516 K/uL (150-450); RED BLOOD CELL COUNT(AUTO) 4.34 MIL/uL (4.50-5.90); RED CELL DISTRIBUTION WIDTH 13.6 % (11.5-14.5)
[2019-10-17] MEDS: CISATRACURIUM BESYLATE 50 MG in DEXTROSE 5%-WATER 245 ML IV PRN ×3 (06:22→13:51)
[2019-10-17 06:26] LABS: GLUCOSE,POINT OF CARE 140 MG/DL (70-110)
[2019-10-17 06:26] LABS: GLUCOSE,POINT OF CARE 135 MG/DL (70-110)
[2019-10-17 06:26] LABS: GLUCOSE,POINT OF CARE 146 MG/DL (70-110)
[2019-10-17 06:40] LABS: NEUTROPHILS % (AUTO) 85.4 % (40.0-70.0)
[2019-10-17 06:59] LABS: ALANINE AMINOTRANSFERASE 50 U/L (12-78); ALBUMIN 1.5 g/dL (3.4-5.0); ALKALINE PHOSPHATASE 156 U/L (46-116); ANION GAP 4 mmol/L (8-16); ASPARTATE AMINOTRANSFERASE 46 U/L (15-37); BILIRUBIN,TOTAL 0.3 mg/dL (0.1-1.0); C-REACTIVE PROTEIN QUANT 6.05 mg/dL (0.00-0.30); CALCIUM, TOTAL 8.2 mg/dL (8.8-10.5); CARBON DIOXIDE 30 mmol/L (22-29); CHLORIDE 92 mmol/L (98-107); CREATININE 0.96 mg/dL (0.60-1.30); FERRITIN 1350 ng/mL (26-388); GLOMERULAR FILTR. RATE CALC > 60 mL/min (>60); GLUCOSE,RANDOM 181 mg/dL (70-110); SODIUM SERUM 126 mmol/L (136-145); TOTAL PROTEIN, SERUM 6.7 g/dL (6.4-8.2); UREA NITROGEN, BLOOD 22 mg/dL (7-18)
[2019-10-17 07:03] LABS: GLUCOMETER DEV NAME(LOC) 4E.2; GLUCOSE,POINT OF CARE 136 MG/DL (70-110)
[2019-10-17 07:04] LABS: GLUCOMETER DEV NAME(LOC) 4E.2; GLUCOSE,POINT OF CARE 167 MG/DL (70-110)
[2019-10-17 07:09] LABS: POTASSIUM 6.4 mmol/L (3.5-5.1)
[2019-10-17] MEDS ORDERED: DEXTROSE 50%-WATER 25 GM/50 ML SYRINGE IVP ONE ×2 (07:30→11:15)
[2019-10-17] MEDS ORDERED: CALCIUM GLUCONATE 100 MG/ML 10 ML IVP ONE ×2 (07:30→11:15)
[2019-10-17] MEDS ORDERED: INSULIN REGULAR, HUMAN 100 UNITS/ML IVP ONE ×2 (07:30→11:15)
[2019-10-17] MEDS ORDERED: SODIUM POLYSTYRENE SULFONATE 15 GM/60 ML SUSPENSION BOTTLE PO ONE ×2 (07:30→17:45)
[2019-10-17] MEDS: PANTOPRAZOLE SODIUM 40 MG DR TABLET PO SCH (07:59)
[2019-10-17] MEDS: ZINC SULFATE 220 MG CAPSULE PO SCH ×2 (07:59→21:42)
[2019-10-17] MEDS: ENOXAPARIN SODIUM 60 MG/0.6 ML PF SYRINGE SQ SCH ×2 (07:59→21:47)
[2019-10-17 08:00] VITALS: BP 119/51
[2019-10-17] MEDS: DOCUSATE SODIUM 100 MG CAPSULE PO SCH (08:00)
[2019-10-17] MEDS: FentaNYL CITRATE PF 500 MCG in DEXTROSE 5%-WATER 90 ML IV PRN ×2 (10:50→15:13)
[2019-10-17] MEDS: MIDAZOLAM HCL 100 MG in DEXTROSE 5%-WATER 180 ML IV PRN (10:52)
[2019-10-17 10:57] LABS: GLUCOMETER DEV NAME(LOC) 4E.2; GLUCOSE,POINT OF CARE 217 MG/DL (70-110)
[2019-10-17 12:00] VITALS: BP 132/48
[2019-10-17 12:51] LABS: GLUCOMETER DEV NAME(LOC) 4E.2; GLUCOSE,POINT OF CARE 225 MG/DL (70-110)
[2019-10-17 16:00] VITALS: BP 152/57
[2019-10-17 18:43] LABS: GLUCOMETER DEV NAME(LOC) 4E.2; GLUCOSE,POINT OF CARE 202 MG/DL (70-110)
[2019-10-17 18:43] LABS: GLUCOMETER DEV NAME(LOC) 4E.2; GLUCOSE,POINT OF CARE 180 MG/DL (70-110)
[2019-10-17 20:00] VITALS: BP_SYST 148; BP_DIAS 52; BP_DIAS 54
[2019-10-18] VITALS (8 sets, daily range): BP systolic 101–170; BP diastolic 41–75
[2019-10-18] MEDS: FentaNYL CITRATE PF 500 MCG in DEXTROSE 5%-WATER 90 ML IV PRN ×3 (01:02→17:23)
[2019-10-18 01:03] LABS: GLUCOSE,POINT OF CARE 150 MG/DL (70-110)
[2019-10-18] MEDS: REMDESIVIR **INVESTIGATIONAL** 100 MG in SODIUM CHLORIDE 0.9% 230 ML IV SCH ×2 (01:20→23:16)
[2019-10-18] MEDS: INSULIN LISPRO 100 UNITS/ML SQ PRN ×3 (01:54→18:38)
[2019-10-18 02:03] LABS: GLUCOMETER DEV NAME(LOC) 4E.2; GLUCOSE,POINT OF CARE 219 MG/DL (70-110)
[2019-10-18] MEDS: PROPOFOL 1000 MG/ISO-OSM 100 ML IV PRN ×4 (02:38→21:31)
[2019-10-18] MEDS: CISATRACURIUM BESYLATE 50 MG in DEXTROSE 5%-WATER 245 ML IV PRN ×3 (02:40→23:17)
[2019-10-18 06:37] LABS: BASOPHILS % (AUTO) 0.3 % (0.0-2.0); EOSINOPHILS % (AUTO) 0.8 % (1.0-6.0); HEMATOCRIT 35.9 % (41-53); HEMOGLOBIN 11.9 g/dL (13.5-17.5); LYMPHOCYTES # (AUTO) 0.5 K/uL (1.0-4.8); LYMPHOCYTES % (AUTO) 4.5 % (22.0-44.0); MEAN CORPUSCULAR HEMOGLOBIN 29.5 pg (26.0-34.0); MEAN CORPUSCULAR HGB CONC 33.2 G/dL (31.0-37.0); MEAN CORPUSCULAR VOLUME 89 fL (80-100); MONOCYTES # (AUTO) 0.6 K/uL (0.1-1.0); MONOCYTES % (AUTO) 5.4 % (2.0-9.0); PLATELET COUNT (AUTO) 405 K/uL (150-450); RED BLOOD CELL COUNT(AUTO) 4.05 MIL/uL (4.50-5.90); RED CELL DISTRIBUTION WIDTH 13.2 % (11.5-14.5)
[2019-10-18 07:08] LABS: ALANINE AMINOTRANSFERASE 48 U/L (12-78); ALBUMIN 1.6 g/dL (3.4-5.0); ALKALINE PHOSPHATASE 146 U/L (46-116); ANION GAP 4 mmol/L (8-16); ASPARTATE AMINOTRANSFERASE 51 U/L (15-37); BILIRUBIN,TOTAL 0.2 mg/dL (0.1-1.0); C-REACTIVE PROTEIN QUANT 2.32 mg/dL (0.00-0.30); CALCIUM, TOTAL 8.2 mg/dL (8.8-10.5); CARBON DIOXIDE 34 mmol/L (22-29); CHLORIDE 93 mmol/L (98-107); CREATININE 0.77 mg/dL (0.60-1.30); FERRITIN 829 ng/mL (26-388); GLOMERULAR FILTR. RATE CALC > 60 mL/min (>60); GLUCOSE,RANDOM 201 mg/dL (70-110); POTASSIUM 4.6 mmol/L (3.5-5.1); SODIUM SERUM 131 mmol/L (136-145); UREA NITROGEN, BLOOD 23 mg/dL (7-18)
[2019-10-18 07:10] LABS: GLUCOSE,POINT OF CARE 160 MG/DL (70-110)
[2019-10-18] MEDS: ZINC SULFATE 220 MG CAPSULE PO SCH ×2 (08:17→21:27)
[2019-10-18] MEDS: PANTOPRAZOLE SODIUM 40 MG DR TABLET PO SCH (08:17)
[2019-10-18] MEDS: ENOXAPARIN SODIUM 60 MG/0.6 ML PF SYRINGE SQ SCH ×2 (08:17→21:29)
[2019-10-18] MEDS: DOCUSATE SODIUM 100 MG CAPSULE PO SCH (08:20)
[2019-10-18] MEDS ORDERED: LORazepam 2 MG/ML VIAL IM PRN (15:45)
[2019-10-18] MEDS: MIDAZOLAM HCL 100 MG in DEXTROSE 5%-WATER 180 ML IV PRN (17:26)
[2019-10-18 19:17] LABS: GLUCOSE,POINT OF CARE 156 MG/DL (70-110)
[2019-10-18 20:10] LABS: GLUCOSE,POINT OF CARE 156 MG/DL (70-110)
[2019-10-19] VITALS (8 sets, daily range): BP systolic 98–172; BP diastolic 42–60
[2019-10-19 00:23] LABS: GLUCOSE,POINT OF CARE 131 MG/DL (70-110)
[2019-10-19] MEDS: INSULIN LISPRO 100 UNITS/ML SQ PRN ×4 (01:00→13:13)
[2019-10-19] MEDS: PROPOFOL 1000 MG/ISO-OSM 100 ML IV PRN ×5 (01:14→20:01)
[2019-10-19] MEDS: FentaNYL CITRATE PF 500 MCG in DEXTROSE 5%-WATER 90 ML IV PRN ×4 (01:43→22:55)
[2019-10-19 05:38] LABS: BASOPHILS % (AUTO) 0.6 % (0.0-2.0); EOSINOPHILS % (AUTO) 3.5 % (1.0-6.0); HEMATOCRIT 33.9 % (41-53); HEMOGLOBIN 11.3 g/dL (13.5-17.5); LYMPHOCYTES # (AUTO) 0.5 K/uL (1.0-4.8); LYMPHOCYTES % (AUTO) 5.6 % (22.0-44.0); MEAN CORPUSCULAR HEMOGLOBIN 29.1 pg (26.0-34.0); MEAN CORPUSCULAR HGB CONC 33.2 G/dL (31.0-37.0); MEAN CORPUSCULAR VOLUME 88 fL (80-100); MONOCYTES # (AUTO) 0.5 K/uL (0.1-1.0); MONOCYTES % (AUTO) 5.2 % (2.0-9.0); NEUTROPHILS # (AUTO) 8.1 K/uL (1.8-7.7); NEUTROPHILS % (AUTO) 85.1 % (40.0-70.0); PLATELET COUNT (AUTO) 334 K/uL (150-450); RED BLOOD CELL COUNT(AUTO) 3.88 MIL/uL (4.50-5.90); RED CELL DISTRIBUTION WIDTH 13.5 % (11.5-14.5)
[2019-10-19 05:53] LABS: GLUCOSE,POINT OF CARE 123 MG/DL (70-110)
[2019-10-19 06:13] LABS: ALANINE AMINOTRANSFERASE 49 U/L (12-78); ALBUMIN 1.6 g/dL (3.4-5.0); ALKALINE PHOSPHATASE 126 U/L (46-116); ANION GAP -1 mmol/L (8-16); ASPARTATE AMINOTRANSFERASE 57 U/L (15-37); BILIRUBIN,TOTAL 0.3 mg/dL (0.1-1.0); C-REACTIVE PROTEIN QUANT 1.29 mg/dL (0.00-0.30); CALCIUM, TOTAL 7.8 mg/dL (8.8-10.5); CARBON DIOXIDE 38 mmol/L (22-29); CHLORIDE 93 mmol/L (98-107); CREATININE 0.58 mg/dL (0.60-1.30); FERRITIN 654 ng/mL (26-388); GLOMERULAR FILTR. RATE CALC > 60 mL/min (>60); GLUCOSE,RANDOM 146 mg/dL (70-110); SODIUM SERUM 130 mmol/L (136-145); TOTAL PROTEIN, SERUM 5.6 g/dL (6.4-8.2); UREA NITROGEN, BLOOD 20 mg/dL (7-18)
[2019-10-19] MEDS: DOCUSATE SODIUM 100 MG CAPSULE PO SCH (09:00)
[2019-10-19] MEDS: ENOXAPARIN SODIUM 60 MG/0.6 ML PF SYRINGE SQ SCH ×2 (09:01→20:01)
[2019-10-19] MEDS: PANTOPRAZOLE SODIUM 40 MG DR TABLET PO SCH (09:01)
[2019-10-19] MEDS: ZINC SULFATE 220 MG CAPSULE PO SCH ×2 (09:01→20:01)
[2019-10-19] MEDS: CISATRACURIUM BESYLATE 50 MG in DEXTROSE 5%-WATER 245 ML IV PRN ×4 (09:02→22:57)
[2019-10-19 16:06] LABS: ABG A-A DIFF O2 427.1 mmHg (10-20.0); ABG BASE EXCESS 9.6 mmol/L (-2.0-3.0); ABG CARBOXYHEMOGLOBIN 0.8 % (0.0-1.5); ABG HCO3 31.3 mmol/L (22.0-26.0); ABG METHEMOGLOBIN 0.3 % (0.0-1.5); ABG OXYGEN CONTENT 16.2 mL/dL (15.0-23.0); ABG OXYGEN SATURATION 94.5 % (95.0-98.0); ABG OXYHEMOGLOBIN 93.5 % (94.0-100.0); ABG PCO2 65 mmHg (35-45); ABG PH 7.352 (7.35-7.450); ABG TOTAL HEMOGLOBIN 12.3 G/dL (12.0-18.0); O2 DEVICE,BLOOD GAS VENTILATOR (ROOM AIR); PEEP,BG 16 cm H2O; PO2, ARTERIAL BG 75.3 mmHg (79.0-87.0); SITE, BLOOD GAS ARTERIAL LINE; SOURCE, BLOOD GAS ARTERIAL; SPONTANEOUS VT, BG 650 ml; TEMPERATURE, FAHRENHEIT, BG 98.6 FAHREN (96.0-98.6); VENT MODE, BG Press. Control Vent (ROOM AIR)
[2019-10-19] MEDS ORDERED: SODIUM CHLORIDE 0.9% 500 ML IV ONE (16:35)
[2019-10-19] MEDS: MIDAZOLAM HCL 100 MG in DEXTROSE 5%-WATER 180 ML IV PRN (18:32)
[2019-10-19 18:42] LABS: GLUCOSE,POINT OF CARE 159 MG/DL (70-110)
[2019-10-19 18:42] LABS: GLUCOSE,POINT OF CARE 161 MG/DL (70-110)
[2019-10-19] MEDS: REMDESIVIR **INVESTIGATIONAL** 100 MG in SODIUM CHLORIDE 0.9% 230 ML IV SCH (22:56)
[2019-10-20] VITALS: BP 122/46
[2019-10-20] MEDS: PROPOFOL 1000 MG/ISO-OSM 100 ML IV PRN ×7 (00:55→20:13)
[2019-10-20] MEDS: INSULIN LISPRO 100 UNITS/ML SQ PRN ×3 (00:55→19:12)
[2019-10-20] MEDS: CISATRACURIUM BESYLATE 50 MG in DEXTROSE 5%-WATER 245 ML IV PRN ×4 (03:06→20:12)
[2019-10-20 04:00] VITALS: BP 118/51
[2019-10-20 05:50] LABS: BASOPHILS % (AUTO) 0.4 % (0.0-2.0); EOSINOPHILS % (AUTO) 2.5 % (1.0-6.0); HEMATOCRIT 34.2 % (41-53); HEMOGLOBIN 11.3 g/dL (13.5-17.5); LYMPHOCYTES # (AUTO) 0.4 K/uL (1.0-4.8); LYMPHOCYTES % (AUTO) 3.6 % (22.0-44.0); MEAN CORPUSCULAR HEMOGLOBIN 29.2 pg (26.0-34.0); MEAN CORPUSCULAR VOLUME 89 fL (80-100); MONOCYTES # (AUTO) 0.6 K/uL (0.1-1.0); MONOCYTES % (AUTO) 6.2 % (2.0-9.0); PLATELET COUNT (AUTO) 338 K/uL (150-450); RED BLOOD CELL COUNT(AUTO) 3.86 MIL/uL (4.50-5.90); RED CELL DISTRIBUTION WIDTH 13.1 % (11.5-14.5)
[2019-10-20] MEDS: FentaNYL CITRATE PF 500 MCG in DEXTROSE 5%-WATER 90 ML IV PRN ×3 (06:04→19:14)
[2019-10-20 06:39] LABS: NEUTROPHILS % (AUTO) 87.3 % (40.0-70.0)
[2019-10-20 07:06] LABS: ALANINE AMINOTRANSFERASE 55 U/L (12-78); ALBUMIN 1.8 g/dL (3.4-5.0); ALKALINE PHOSPHATASE 144 U/L (46-116); ANION GAP 2 mmol/L (8-16); ASPARTATE AMINOTRANSFERASE 54 U/L (15-37); BILIRUBIN,TOTAL 0.2 mg/dL (0.1-1.0); C-REACTIVE PROTEIN QUANT 1.24 mg/dL (0.00-0.30); CALCIUM, TOTAL 7.9 mg/dL (8.8-10.5); CARBON DIOXIDE 36 mmol/L (22-29); CHLORIDE 90 mmol/L (98-107); CREATININE 0.68 mg/dL (0.60-1.30); FERRITIN 631 ng/mL (26-388); GLOMERULAR FILTR. RATE CALC > 60 mL/min (>60); GLUCOSE,RANDOM 176 mg/dL (70-110); POTASSIUM 4.2 mmol/L (3.5-5.1); SODIUM SERUM 128 mmol/L (136-145); TOTAL PROTEIN, SERUM 5.8 g/dL (6.4-8.2); UREA NITROGEN, BLOOD 25 mg/dL (7-18)
[2019-10-20 07:35] LABS: GLUCOSE,POINT OF CARE 177 MG/DL (70-110)
[2019-10-20 08:00] VITALS: BP 120/50
[2019-10-20] MEDS: DOCUSATE SODIUM 100 MG CAPSULE PO SCH (09:40)
[2019-10-20] MEDS: PANTOPRAZOLE SODIUM 40 MG DR TABLET PO SCH (09:40)
[2019-10-20] MEDS: ENOXAPARIN SODIUM 60 MG/0.6 ML PF SYRINGE SQ SCH ×2 (09:40→20:16)
[2019-10-20] MEDS: ZINC SULFATE 220 MG CAPSULE PO SCH ×2 (09:40→20:16)
[2019-10-20] MEDS ORDERED: DiphenhydrAMINE HCL 50 MG/ML VIAL IM ONE (11:00)
[2019-10-20 12:00] VITALS: BP 115/41
[2019-10-20] MEDS ORDERED: DiphenhydrAMINE HCL 50 MG/ML VIAL IVP ONE (12:30)
[2019-10-20] MEDS: MethylPREDNISolone SOD SUCC 125 MG/2 ML VIAL IVP SCH (12:52)
[2019-10-20 16:00] VITALS: BP 142/51
[2019-10-20 16:21] LABS: GLUCOSE,POINT OF CARE 167 MG/DL (70-110)
[2019-10-20] MEDS ORDERED: LIDOCAINE 2% 30 ML JELLY TP ONE (17:34)
[2019-10-20 19:20] LABS: GLUCOMETER DEV NAME(LOC) 4E.2; GLUCOSE,POINT OF CARE 160 MG/DL (70-110)
[2019-10-20 19:20] LABS: GLUCOMETER DEV NAME(LOC) 4E.2; GLUCOSE,POINT OF CARE 209 MG/DL (70-110)
[2019-10-20 19:37] LABS: SITE, BLOOD GAS ARTERIAL LINE; SOURCE, BLOOD GAS ARTERIAL
[2019-10-20 19:38] LABS: ABG HCO3 29.5 mmol/L (22.0-26.0); ABG PCO2 50 mmHg (35-45); ABG PH 7.416 (7.35-7.450); TEMPERATURE, FAHRENHEIT, BG 98.6 FAHREN (96.0-98.6)
[2019-10-20 19:39] LABS: ABG BASE EXCESS 6.6 mmol/L (-2.0-3.0); ABG CARBOXYHEMOGLOBIN 0.3 % (0.0-1.5); ABG OXYHEMOGLOBIN 97.8 % (94.0-100.0); ABG TOTAL HEMOGLOBIN 12.4 G/dL (12.0-18.0)
[2019-10-20 19:41] LABS: ABG OXYGEN CONTENT 16.1 mL/dL (15.0-23.0)
[2019-10-20 19:42] LABS: O2 DEVICE,BLOOD GAS VENTILATOR (ROOM AIR); PEEP,BG 16 cm H2O; SPONTANEOUS VT, BG 632 ml; VENT MODE, BG Press. Control Vent (ROOM AIR)
[2019-10-20 20:00] VITALS: BP 142/45
[2019-10-20 23:28] LABS: ABG OXYGEN SATURATION 98.1 % (95.0-98.0)
[2019-10-20] MEDS ORDERED: SODIUM CHLORIDE 0.9% 500 ML IV ONE (23:30)
[2019-10-21] VITALS: BP 123/45
[2019-10-21] MEDS: HEPARIN SODIUM 1000 UNITS/NS 500 ML IV SCH (00:21)
[2019-10-21] MEDS: PROPOFOL 1000 MG/ISO-OSM 100 ML IV PRN ×6 (00:23→22:06)
[2019-10-21] MEDS: INSULIN LISPRO 100 UNITS/ML SQ PRN ×4 (00:26→17:46)
[2019-10-21] MEDS: CISATRACURIUM BESYLATE 50 MG in DEXTROSE 5%-WATER 245 ML IV PRN ×5 (01:24→21:30)
[2019-10-21] MEDS: FentaNYL CITRATE PF 500 MCG in DEXTROSE 5%-WATER 90 ML IV PRN ×3 (02:08→22:45)
[2019-10-21 04:00] VITALS: BP 113/39
[2019-10-21 05:53] LABS: EOSINOPHILS % (AUTO) 0.4 % (1.0-6.0); HEMATOCRIT 32.2 % (41-53); HEMOGLOBIN 10.5 g/dL (13.5-17.5); LYMPHOCYTES # (AUTO) 0.5 K/uL (1.0-4.8); LYMPHOCYTES % (AUTO) 4.5 % (22.0-44.0); MEAN CORPUSCULAR HEMOGLOBIN 28.6 pg (26.0-34.0); MEAN CORPUSCULAR HGB CONC 32.7 G/dL (31.0-37.0); MEAN CORPUSCULAR VOLUME 87 fL (80-100); MONOCYTES # (AUTO) 0.7 K/uL (0.1-1.0); MONOCYTES % (AUTO) 5.6 % (2.0-9.0); NEUTROPHILS # (AUTO) 10.8 K/uL (1.8-7.7); PLATELET COUNT (AUTO) 314 K/uL (150-450); RED BLOOD CELL COUNT(AUTO) 3.68 MIL/uL (4.50-5.90); RED CELL DISTRIBUTION WIDTH 13.6 % (11.5-14.5)
[2019-10-21 06:37] LABS: GLUCOMETER DEV NAME(LOC) 4E.2; GLUCOSE,POINT OF CARE 218 MG/DL (70-110)
[2019-10-21 06:50] LABS: ALANINE AMINOTRANSFERASE 45 U/L (12-78); ALBUMIN 1.8 g/dL (3.4-5.0); ALKALINE PHOSPHATASE 139 U/L (46-116); ANION GAP 1 mmol/L (8-16); ASPARTATE AMINOTRANSFERASE 34 U/L (15-37); BILIRUBIN,TOTAL 0.2 mg/dL (0.1-1.0); C-REACTIVE PROTEIN QUANT 1.18 mg/dL (0.00-0.30); CALCIUM, TOTAL 8.6 mg/dL (8.8-10.5); CARBON DIOXIDE 39 mmol/L (22-29); CHLORIDE 94 mmol/L (98-107); CREATININE 0.67 mg/dL (0.60-1.30); FERRITIN 537 ng/mL (26-388); GLOMERULAR FILTR. RATE CALC > 60 mL/min (>60); GLUCOSE,RANDOM 166 mg/dL (70-110); POTASSIUM 4.3 mmol/L (3.5-5.1); SODIUM SERUM 134 mmol/L (136-145); TOTAL PROTEIN, SERUM 5.7 g/dL (6.4-8.2); UREA NITROGEN, BLOOD 22 mg/dL (7-18)
[2019-10-21 07:07] LABS: NEUTROPHILS % (AUTO) 88.5 % (40.0-70.0)
[2019-10-21 07:15] LABS: GLUCOSE,POINT OF CARE 176 MG/DL (70-110)
[2019-10-21 08:00] VITALS: BP 138/44
[2019-10-21] MEDS: ZINC SULFATE 220 MG CAPSULE PO SCH ×2 (09:16→20:42)
[2019-10-21] MEDS: DOCUSATE SODIUM 100 MG CAPSULE PO SCH (09:16)
[2019-10-21] MEDS: MethylPREDNISolone SOD SUCC 125 MG/2 ML VIAL IVP SCH (09:16)
[2019-10-21] MEDS: ENOXAPARIN SODIUM 60 MG/0.6 ML PF SYRINGE SQ SCH ×2 (09:16→20:47)
[2019-10-21] MEDS: PANTOPRAZOLE SODIUM 40 MG DR TABLET PO SCH (09:16)
[2019-10-21 12:00] VITALS: BP 140/45
[2019-10-21 13:38] LABS: GLUCOSE,POINT OF CARE 155 MG/DL (70-110)
[2019-10-21 16:00] VITALS: BP 134/47
[2019-10-21 17:57] LABS: GLUCOMETER DEV NAME(LOC) 4E.2; GLUCOSE,POINT OF CARE 177 MG/DL (70-110)
[2019-10-21] MEDS: MIDAZOLAM HCL 100 MG in DEXTROSE 5%-WATER 180 ML IV PRN (19:24)
[2019-10-21 20:00] VITALS: BP 131/49
[2019-10-22] VITALS: BP 116/43
[2019-10-22] MEDS: PROPOFOL 1000 MG/ISO-OSM 100 ML IV PRN ×3 (02:35→15:51)
[2019-10-22 04:00] VITALS: BP 101/57
[2019-10-22] MEDS: ACETAMINOPHEN 325 MG TABLET PO PRN (05:00)
[2019-10-22 05:53] LABS: BASOPHILS % (AUTO) 0.4 % (0.0-2.0); EOSINOPHILS % (AUTO) 1.3 % (1.0-6.0); HEMATOCRIT 32.5 % (41-53); HEMOGLOBIN 10.7 g/dL (13.5-17.5); LYMPHOCYTES # (AUTO) 0.9 K/uL (1.0-4.8); LYMPHOCYTES % (AUTO) 7.9 % (22.0-44.0); MEAN CORPUSCULAR VOLUME 88 fL (80-100); MONOCYTES # (AUTO) 0.7 K/uL (0.1-1.0); MONOCYTES % (AUTO) 6.7 % (2.0-9.0); NEUTROPHILS # (AUTO) 9.3 K/uL (1.8-7.7); NEUTROPHILS % (AUTO) 83.7 % (40.0-70.0); PLATELET COUNT (AUTO) 312 K/uL (150-450); RED CELL DISTRIBUTION WIDTH 13.6 % (11.5-14.5)
[2019-10-22 06:28] LABS: ALANINE AMINOTRANSFERASE 40 U/L (12-78); ALBUMIN 1.8 g/dL (3.4-5.0); ALKALINE PHOSPHATASE 126 U/L (46-116); ANION GAP 2 mmol/L (8-16); ASPARTATE AMINOTRANSFERASE 31 U/L (15-37); BILIRUBIN,TOTAL 0.3 mg/dL (0.1-1.0); C-REACTIVE PROTEIN QUANT 0.62 mg/dL (0.00-0.30); CALCIUM, TOTAL 8.6 mg/dL (8.8-10.5); CARBON DIOXIDE 39 mmol/L (22-29); CHLORIDE 97 mmol/L (98-107); CREATININE 0.66 mg/dL (0.60-1.30); FERRITIN 527 ng/mL (26-388); GLOMERULAR FILTR. RATE CALC > 60 mL/min (>60); GLUCOSE,RANDOM 136 mg/dL (70-110); POTASSIUM 3.6 mmol/L (3.5-5.1); SODIUM SERUM 138 mmol/L (136-145); TOTAL PROTEIN, SERUM 5.6 g/dL (6.4-8.2); UREA NITROGEN, BLOOD 26 mg/dL (7-18)
[2019-10-22 06:32] LABS: GLUCOMETER DEV NAME(LOC) 4E.2; GLUCOSE,POINT OF CARE 138 MG/DL (70-110)
[2019-10-22 07:05] LABS: GLUCOSE,POINT OF CARE 125 MG/DL (70-110)
[2019-10-22 08:00] VITALS: BP 167/56
[2019-10-22 08:10] LABS: ABG A-A DIFF O2 445.5 mmHg (10-20.0); ABG BASE EXCESS 17.2 mmol/L (-2.0-3.0); ABG CARBOXYHEMOGLOBIN 0.1 % (0.0-1.5); ABG HCO3 38.5 mmol/L (22.0-26.0); ABG METHEMOGLOBIN 0.3 % (0.0-1.5); ABG OXYGEN CONTENT 16.5 mL/dL (15.0-23.0); ABG OXYGEN SATURATION 94.3 % (95.0-98.0); ABG OXYHEMOGLOBIN 93.9 % (94.0-100.0); ABG PCO2 57 mmHg (35-45); ABG PH 7.475 (7.35-7.450); ABG TOTAL HEMOGLOBIN 12.5 G/dL (12.0-18.0); O2 DEVICE,BLOOD GAS VENTILATOR (ROOM AIR); PO2, ARTERIAL BG 66.7 mmHg (79.0-87.0); SITE, BLOOD GAS ARTERIAL LINE; SOURCE, BLOOD GAS ARTERIAL; TEMPERATURE, FAHRENHEIT, BG 97.6 FAHREN (96.0-98.6); VENT MODE, BG Press. Control Vent (ROOM AIR)
[2019-10-22 08:11] LABS: PEEP,BG 14 cm H2O; VT, ABG 700 ml
[2019-10-22] MEDS: DOCUSATE SODIUM 100 MG CAPSULE PO SCH (09:14)
[2019-10-22] MEDS: ENOXAPARIN SODIUM 60 MG/0.6 ML PF SYRINGE SQ SCH ×2 (09:15→20:08)
[2019-10-22] MEDS: PANTOPRAZOLE SODIUM 40 MG DR TABLET PO SCH (09:15)
[2019-10-22] MEDS: ZINC SULFATE 220 MG CAPSULE PO SCH ×2 (09:15→20:07)
[2019-10-22] MEDS: MethylPREDNISolone SOD SUCC 125 MG/2 ML VIAL IVP SCH (09:15)
[2019-10-22] MEDS: CISATRACURIUM BESYLATE 50 MG in DEXTROSE 5%-WATER 245 ML IV PRN ×3 (11:59→21:46)
[2019-10-22 12:00] VITALS: BP 164/59
[2019-10-22] MEDS: INSULIN LISPRO 100 UNITS/ML SQ PRN ×2 (12:36→18:44)
[2019-10-22 16:00] VITALS: BP 146/62
[2019-10-22] MEDS: FentaNYL CITRATE PF 500 MCG in DEXTROSE 5%-WATER 90 ML IV PRN ×2 (18:25→21:47)
[2019-10-22 19:10] LABS: GLUCOMETER DEV NAME(LOC) 4E.2; GLUCOSE,POINT OF CARE 180 MG/DL (70-110)
[2019-10-22 20:00] VITALS: BP 179/68
[2019-10-23] VITALS: BP 193/73
[2019-10-23] MEDS: PROPOFOL 1000 MG/ISO-OSM 100 ML IV PRN ×2 (00:08→03:39)
[2019-10-23] MEDS: CISATRACURIUM BESYLATE 50 MG in DEXTROSE 5%-WATER 245 ML IV PRN ×2 (00:09→03:39)
[2019-10-23] MEDS: INSULIN LISPRO 100 UNITS/ML SQ PRN (00:40)
[2019-10-23 04:00] VITALS: BP 123/50
[2019-10-23] MEDS: FentaNYL CITRATE PF 500 MCG in DEXTROSE 5%-WATER 90 ML IV PRN (04:05)
[2019-10-23 05:02] VITALS: BP 56/28
[2019-10-23] MEDS: NOREPINEPHRINE BITARTRATE 16 MG in DEXTROSE 5%-WATER 234 ML IV PRN (05:02)
[2019-10-23 06:30] LABS: BASOPHILS % (AUTO) 0.3 % (0.0-2.0); EOSINOPHILS % (AUTO) 0.1 % (1.0-6.0); HEMATOCRIT 38.4 % (41-53); HEMOGLOBIN 12.1 g/dL (13.5-17.5); LYMPHOCYTES # (AUTO) 0.6 K/uL (1.0-4.8); MEAN CORPUSCULAR HEMOGLOBIN 28.2 pg (26.0-34.0); MEAN CORPUSCULAR HGB CONC 31.6 G/dL (31.0-37.0); MEAN CORPUSCULAR VOLUME 89 fL (80-100); MONOCYTES # (AUTO) 0.5 K/uL (0.1-1.0); MONOCYTES % (AUTO) 1.8 % (2.0-9.0); NEUTROPHILS # (AUTO) 27.5 K/uL (1.8-7.7); PLATELET COUNT (AUTO) 460 K/uL (150-450); RED CELL DISTRIBUTION WIDTH 13.9 % (11.5-14.5)
[2019-10-23 06:41] LABS: NEUTROPHILS % (AUTO) 95.8 % (40.0-70.0)
[2019-10-23] MEDS ORDERED: VASOPRESSIN 40 UNITS in DEXTROSE 5%-WATER 98 ML IV PRN (06:43)
[2019-10-23] MEDS ORDERED: PHENYLEPHRINE 200 MG/D5%-WATER 250 ML IV PRN (06:43)
[2019-10-23 06:45] LABS: ALANINE AMINOTRANSFERASE 54 U/L (12-78); ALBUMIN 1.8 g/dL (3.4-5.0); ALKALINE PHOSPHATASE 178 U/L (46-116); ANION GAP 7 mmol/L (8-16); ASPARTATE AMINOTRANSFERASE 48 U/L (15-37); BILIRUBIN,TOTAL 0.5 mg/dL (0.1-1.0); C-REACTIVE PROTEIN QUANT 5.49 mg/dL (0.00-0.30); CALCIUM, TOTAL 8.7 mg/dL (8.8-10.5); CARBON DIOXIDE 36 mmol/L (22-29); CHLORIDE 96 mmol/L (98-107); CREATININE 1.07 mg/dL (0.60-1.30); FERRITIN 616 ng/mL (26-388); GLOMERULAR FILTR. RATE CALC > 60 mL/min (>60); GLUCOSE,RANDOM 113 mg/dL (70-110); PHOSPHORUS 4.9 mg/dL (2.5-4.9); POTASSIUM 3.9 mmol/L (3.5-5.1); SODIUM SERUM 139 mmol/L (136-145); TOTAL PROTEIN, SERUM 5.9 g/dL (6.4-8.2); UREA NITROGEN, BLOOD 29 mg/dL (7-18)
[2019-10-23 07:49] LABS: GLUCOSE,POINT OF CARE 145 MG/DL (70-110)
[2019-10-23] MEDS ORDERED: AMINO ACIDS/PROTEIN HYDROLYS 30 ML TUBE PO SCH (08:00)
== END 2019-10-23 07:47 | disposition expired | DRG 870 ==
LOC: EMS 05:33 → 5N 11:56 → ICU 10-13 21:00
PROVIDERS: ADMIT Internal Medicine; ATTEND Internal Medicine
PROC: 30233L1 Transfusion of Nonautologous Fresh Plasma into Peripheral Vein, Percutaneous Approach (ICD-10-PCS; 2019-10-03)
PROC: 30233K1 Transfusion of Nonautologous Frozen Plasma into Peripheral Vein, Percutaneous Approach (ICD-10-PCS; 2019-10-03)
PROC: 5A1955Z Respiratory Ventilation, Greater than 96 Consecutive Hours (ICD-10-PCS; principal; 2019-10-13)
PROC: 0BH17EZ Insertion of Endotracheal Airway into Trachea, Via Natural or Artificial Opening (ICD-10-PCS; 2019-10-13)
PROC: 05HY33Z Insertion of Infusion Device into Upper Vein, Percutaneous Approach (ICD-10-PCS; 2019-10-22)
PROC: B54MZZA Ultrasonography of Right Upper Extremity Veins, Guidance (ICD-10-PCS; 2019-10-22)
DX: A41.89 Other specified sepsis (principal); U07.1 COVID-19; J96.01 Acute respiratory failure with hypoxia; E43 Unspecified severe protein-calorie malnutrition; Z68.41 Body mass index [BMI] 40.0-44.9, adult; E87.1 Hypo-osmolality and hyponatremia; I10 Essential (primary) hypertension; E11.9 Type 2 diabetes mellitus without complications; D63.8 Anemia in other chronic diseases classified elsewhere; E78.5 Hyperlipidemia, unspecified; E78.00 Pure hypercholesterolemia, unspecified; Z83.3 Family history of diabetes mellitus; Z82.49 Family history of ischemic heart disease and other diseases of the circulatory system; Z88.1 Allergy status to other antibiotic agents; Z88.8 Allergy status to other drugs, medicaments and biological substances; I46.9 Cardiac arrest, cause unspecified; Z88.0 Allergy status to penicillin; Z91.19 Patient's noncompliance with other medical treatment and regimen; Z79.899 Other long term (current) drug therapy; R21 Rash and other nonspecific skin eruption
CPT/HCPCS: 36245; 36569; 36600; 71275; 76937; 82728; 82805; 83615; 83735; 84100; 84132; 84145; 85379; 85651; 86140; 86480; 86635; 86706; 86707; 86738; 86850; 86900; 86901; 86927; 87040; 87070; 87081; 87205; 87340; 87350; 87449; 87899; 92950; 93306; 93970; 94002; 94003; 94640; G0378; J0456; J0610; J1200; J1644; J1650; J1815; J1956; J2060; J2250; J2405; J2704; J2930; J3010; J3370; J3490; J7040; J7050; J7060